=== PATIENT | female | born 1965 | race Caucasian/White ===

== ENCOUNTER 2016-10-23 09:25 | Emergency (ER) | payer OTHER ==
[2016-10-23 09:30] VITALS: RESP 18
[2016-10-23] MEDS ORDERED: KETOROLAC 30 MG/ML 1 ML VIAL IVP STA (10:00)
[2016-10-23] MEDS ORDERED: ONDANSETRON 4 MG/2 ML VIAL IVP STA (10:00)
[2016-10-23] MEDS ORDERED: SODIUM CHLORIDE 0.9% 1,000 ML IV STA (10:00)
--- NOTE | 2016-10-23 10:04 | ED ---
Female Urogenital HPI - General Chief complaint: Vaginal Bleeding Stated complaint: FEMALE Time Seen by Provider: 10/23/16 09:38 Source: patient, RN notes reviewed Mode of arrival: ambulatory Limitations: no limitations - History of Present Illness Initial comments: 51-year-old female presents to the emergency department with a chief complaint of vaginal bleeding. Patient states that she has had vaginal bleeding for the past 2-3 days. Patient states she is passing large clots and having cramping. Patient states that she just finished her normal menstrual cycle on the . Patient states her MANAGER OF COMPLIANCE is Dr. Fernandes but she has not seen her last few years. Patient states she has had a D&C performed due to a similar complaint. Patient states that she was concerned due to her continued bleeding so she thought that she should be evaluated. Patient denies any lightheadedness or dizziness with this.Patient denies any recent fever, chills, shortness of breath, chest pain, back pain, nausea vomiting, numbness or tingling, dysuria or hematuria, constipation or diarrhea, headaches or visual changes, or any other current symptoms. Last Menstrual Period: 10/04/16 - Related Data Home Medications Medication Instructions Recorded Confirmed Aspirin 325 - 650 mg PO Q6H PRN 10/23/16 10/23/16 Allergies Allergy/AdvReac Type Severity Reaction Status Date / Time dextromethorphan HBr Allergy Unknown Verified 10/23/16 10:07 [From Comtrex Cold-Cough] Childhood phenylephrine HCl Allergy Unknown Verified 10/23/16 10:07 [From Comtrex Cold-Cough] Childhood Review of Systems ROS Statement: Those systems with pertinent positive or pertinent negative responses have been documented in the HPI. ROS Other: All systems not noted in ROS Statement are negative. Past Medical History Past Medical History: No Reported History Additional Past Medical History / Comment(s): occasional low blood sugar History of Any Multi-Drug Resistant Organisms: None Reported Past Surgical History: Cholecystectomy, Tonsillectomy Additional Past Surgical History / Comment(s): D&C Past Anesthesia/Blood Transfusion Reactions: No Reported Reaction Past Psychological History: No Psychological Hx Reported Smoking Status: Never smoker Past Alcohol Use History: None Reported Past Drug Use History: None Reported General Exam - General Exam Comments Initial Comments: General: The patient is awake and alert, in no distress, and does not appear acutely ill. Eye: Pupils are equal, round and reactive to light, extra-ocular movements are intact; there is normal conjunctiva bilaterally. No signs of icterus. Ears, nose, mouth and throat: There are moist mucous membranes. Neck: The neck is supple, there is no tenderness. Cardiovascular: There is a regular rate and rhythm. No murmur, rub or gallop is appreciated. Respiratory: Lungs are clear to auscultation, respirations are non-labored, breath sounds are equal. No wheezes, stridor, rales, or rhonchi. Gastrointestinal: Soft, non-distended, non-tender abdomen without masses or organomegaly noted. There is no rebound or guarding present. No CVA tenderness. Bowel sounds are unremarkable. Back: There is no tenderness to palpation in the midline. There is no obvious deformity. No rashes noted. Musculoskeletal: Normal ROM, no tenderness, There is no pedal edema. There is no calf tenderness or swelling. Sensation intact. Pulses equal bilaterally 2+. Neurological: CN II-XII intact, There are no obvious motor or sensory deficits. Coordination appears grossly intact. Speech is normal. Skin: Skin is warm and dry and no rashes or lesions are noted. Psychiatric: Cooperative, appropriate mood & affect, normal judgment. Limitations: no limitations External exam: Present: normal external exam Speculum exam: Present: normal speculum exam, other (Unable to visualize cervix due to location of fibroid) By manual exam: Present: uterine enlargement (Fibroid palpated) Course Vital Signs 10/23/16 09:28 Temperature 97.5 F L Pulse Rate 92 Respiratory 18 Rate Blood Pressure 175/94 O2 Sat by Pulse 100 Oximetry Medical Decision Making - Medical Decision Making 51-year-old female presents emergency Department chief complaint of vaginal bleeding. At this time pelvic exam AND LABORATORY TESTS SHOW A UTERINE FIBROID. THIS TIME WE DISCUSSED FOLLOW-UP WITH MANAGER OF COMPLIANCE. WE DISCUSSED RETURN PARAMETERS ALL PATIENT'S QUESTIONS. SHE STATED THAT SHE UNDERSTOOD AND SHE IS AGREEMENT PLAN. ALL QUESTIONS HAVE BEEN ANSWERED. SHE WILL BE DISCHARGED HOME. - Lab Data Result diagrams: 10/23/16 09:59 10/23/16 09:59 Lab Results 10/23/16 10/23/16 10/23/16 Range/Units 09:59 09:59 09:59 WBC 5.3 (3.8-10.6) k/uL RBC 4.33 (3.80-5.40) m/uL Hgb 13.2 (11.4-16.0) gm/dL Hct 38.9 (34.0-46.0) % MCV 89.8 (80.0-100.0) fL MCH 30.6 (25.0-35.0) pg MCHC 34.1 (31.0-37.0) g/dL RDW 14.0 (11.5-15.5) % Plt Count 229 (150-450) k/uL Neutrophils % 75 % Lymphocytes % 17 % Monocytes % 5 % Eosinophils % 1 % Basophils % 1 % Neutrophils # 4.0 (1.3-7.7) k/uL Lymphocytes # 0.9 L (1.0-4.8) k/uL Monocytes # 0.3 (0-1.0) k/uL Eosinophils # 0.1 (0-0.7) k/uL Basophils # 0.0 (0-0.2) k/uL PT 11.3 (9.0-12.0) sec INR 1.1 (<1.1) APTT 24.8 (22.0-30.0) sec Sodium 141 (137-145) mmol/L Potassium 4.2 (3.5-5.1) mmol/L Chloride 107 (98-107) mmol/L Carbon Dioxide 22 (22-30) mmol/L Anion Gap 12 mmol/L BUN 11 (7-17) mg/dL Creatinine 0.69 (0.52-1.04) mg/dL Est GFR (MDRD) Af Amer >60 (>60 ml/min/1.73 sqM) Est GFR (MDRD) Non-Af >60 (>60 ml/min/1.73 sqM) Glucose 81 (74-99) mg/dL Calcium 8.8 (8.4-10.2) mg/dL Total Bilirubin 0.5 (0.2-1.3) mg/dL AST 22 (14-36) U/L ALT 26 (9-52) U/L Alkaline Phosphatase 63 (38-126) U/L Total Protein 6.8 (6.3-8.2) g/dL Albumin 4.1 (3.5-5.0) g/dL Urine Color Urine Appearance (Clear) Urine RBC (0-5) /hpf Urine WBC (0-5) /hpf Urine HCG, Qual (Not Detectd) 10/23/16 10/23/16 Range/Units 10:10 10:10 WBC (3.8-10.6) k/uL RBC (3.80-5.40) m/uL Hgb (11.4-16.0) gm/dL Hct (34.0-46.0) % MCV (80.0-100.0) fL MCH (25.0-35.0) pg MCHC (31.0-37.0) g/dL RDW (11.5-15.5) % Plt Count (150-450) k/uL Neutrophils % % Lymphocytes % % Monocytes % % Eosinophils % % Basophils % % Neutrophils # (1.3-7.7) k/uL Lymphocytes # (1.0-4.8) k/uL Monocytes # (0-1.0) k/uL Eosinophils # (0-0.7) k/uL Basophils # (0-0.2) k/uL PT (9.0-12.0) sec INR (<1.1) APTT (22.0-30.0) sec Sodium (137-145) mmol/L Potassium (3.5-5.1) mmol/L Chloride (98-107) mmol/L Carbon Dioxide (22-30) mmol/L Anion Gap mmol/L BUN (7-17) mg/dL Creatinine (0.52-1.04) mg/dL Est GFR (MDRD) Af Amer (>60 ml/min/1.73 sqM) Est GFR (MDRD) Non-Af (>60 ml/min/1.73 sqM) Glucose (74-99) mg/dL Calcium (8.4-10.2) mg/dL Total Bilirubin (0.2-1.3) mg/dL AST (14-36) U/L ALT (9-52) U/L Alkaline Phosphatase (38-126) U/L Total Protein (6.3-8.2) g/dL Albumin (3.5-5.0) g/dL Urine Color Red Urine Appearance Bloody H (Clear) Urine RBC >182 H (0-5) /hpf Urine WBC >182 H (0-5) /hpf Urine HCG, Qual Not Detected (Not Detectd) - Radiology Data Radiology results: report reviewed, image reviewed Disposition Clinical Impression: Uterine fibroid, Vaginal bleeding Disposition: HOME SELF-CARE Condition: Stable Instructions: Uterine Fibroids (ED) Additional Instructions: Please use medication as discussed. Please follow up with family doctor if symptoms have not improved over the next two days. Please return to the emergency room if your symptoms increase or worsen or for any other concerns. Referrals: Javan Lawrence MD [Primary Care Provider] - 1-2 days Chiqui Fernandes DO [Doctor of Osteopathic Medicine] - 1-2 days Time of Disposition: 11:49
[2016-10-23 10:12] LABS: Basophils % (A) 1 %; CH 30.1; CHCM 33.7; Eosinophils # (A) 0.1 k/uL (0-0.7); Eosinophils % (A) 1 %; HCT 38.9 % (34.0-46.0); HDW 2.71; HGB 13.2 gm/dL (11.4-16.0); Luc # (Auto) 0.09; Luc % (Auto) 2; Lymphocytes # (A) 0.9 k/uL (1.0-4.8); Lymphocytes % (A) 17 %; MCH 30.6 pg (25.0-35.0); MCHC 34.1 g/dL (31.0-37.0); MCV 89.8 fL (80.0-100.0); Mean Platelet Volume 8.3; Monocytes # (A) 0.3 k/uL (0-1.0); Monocytes % (A) 5 %; Neutrophils % (A) 75 %; RBC 4.33 m/uL (3.80-5.40); WBC 5.3 k/uL (3.8-10.6); WBC (Perox) 5.25
[2016-10-23 10:20] LABS: INR 1.1 (<1.1); Partial Thromboplastin Time 24.8 sec (22.0-30.0); Prothrombin Time 11.3 sec (9.0-12.0)
[2016-10-23 10:23] LABS: ALT 26 U/L (9-52); AST 22 U/L (14-36); Alkaline Phosphatase 63 U/L (38-126); Anion Gap 12 mmol/L; Blood Urea Nitrogen 11 mg/dL (7-17); Calcium 8.8 mg/dL (8.4-10.2); Carbon Dioxide 22 mmol/L (22-30); Chloride 107 mmol/L (98-107); Glucose 81 mg/dL (74-99); Non-African American GFR(MDRD) >60 (>60 ml/min/1.73 sqM); Potassium 4.2 mmol/L (3.5-5.1); Sodium 141 mmol/L (137-145); Total Bilirubin 0.5 mg/dL (0.2-1.3); Total Protein 6.8 g/dL (6.3-8.2)
[2016-10-23 10:48] LABS: Particle Count 16260; RBC,Urine >182 /hpf (0-5); WBC,Urine >182 /hpf (0-5)
[2016-10-23 10:50] LABS: Appearance,Urine Bloody (Clear)
[2016-10-23 10:51] LABS: UA Billing (MACRO vs. MICRO) MICRO
--- NOTE | 2016-10-23 11:26 | US ---
EXAMINATION TYPE: US transvaginal DATE OF EXAM: 10/23/2016 COMPARISON: NONE CLINICAL HISTORY: Pain. TECHNIQUE: Transvaginal (TV) and Transabdominal (TA) Date of LMP: 09-29-16 EXAM MEASUREMENTS: Uterus: 13.2 x 9.6 x 6.4 cm Endometrial Stripe: 1.3 cm Right Ovary: not visualized Left Ovary: 2.6 x 1.5 x 1.5 cm 1. Uterus: Anteverted, enlarged, large exophytic mass, probable fibroid measuring 9.7 x 8.4 x 10.8 cm 2. Endometrium: wnl 3. Right Ovary: Obscured by overlying bowel gas 4. Left Ovary: wnl 5. Bilateral Adnexa: wnl 6. Posterior cul-de-sac: wnl IMPRESSION: 1. Large posterior uterine fibroid
[2016-10-23 11:58] VITALS: BP 146/90; PULSE 72; TEMP 97.8
== END 2016-10-23 12:07 | disposition home or self-care (01) ==
LOC: EC 09:25
DX: D25.9 Leiomyoma of uterus, unspecified (principal); Z88.8 Allergy status to other drugs, medicaments and biological substances; Z90.49 Acquired absence of other specified parts of digestive tract
CPT/HCPCS: 99284; 96374; 96361 ×2; 36415; 80053; 87591; 87491; 85025; 85610; 85730; 81001; 81025; 87808; 87070; 76856; 76830; J1885; 87205

== ENCOUNTER 2016-11-03 10:07 | Emergency (ER) | payer OTHER ==
[2016-11-03 10:33] VITALS: TEMP 98.1
[2016-11-03] MEDS ORDERED: ACETAMINOPHEN TAB 325 MG TAB PO STA (11:03)
--- NOTE | 2016-11-03 11:03 | ED ---
Female Urogenital HPI - General Chief complaint: Vaginal Bleeding Stated complaint: blood clots/bleeding Time Seen by Provider: 11/03/16 10:49 Source: patient, RN notes reviewed Mode of arrival: ambulatory Limitations: no limitations - History of Present Illness Initial comments: Patient is a 51-year-old female with past medical history of uterine fibroids for which she was seen in the emergency department last month. Patient reports that over the past 3 months she has been having irregular vaginal bleeding, experiencing 2 menstrual cycles per month, with occasional intermittent spotting. On October 23 she was diagnosed with uterine fibroids and advised to follow-up with her primary care physician or family therapist for further evaluation. The patient has been unable to establish follow-up. She reports this morning she passed one large blood clot per vagina, at approximately 7am. She reports that since that time she has had minimal vaginal bleeding. However she read her discharge paperwork from her last ER visit which advised her to return to the emergency department for any passing of large blood clots. She reports that she came in today to make us aware that this that happened. She reports she feels well, she denies any lightheadedness, chest pain, shortness of breath, feeling faint. She reports that she is not concerned by the amount of vaginal bleeding she is experiencing. She denies any abdominal pain, she reports occasional low pelvic cramping but is not experiencing that today. Patient reports that if her discharge paperwork had not advised her to return to the ER for any passage of large blood clots she would not of come to the ER today. Last Menstrual Period: 10/01/16 - Related Data Home Medications Medication Instructions Recorded Confirmed Aspirin 325 mg PO Q6H PRN 10/23/16 11/03/16 Multivitamin Protein Drink 1 can PO DAILY 11/03/16 11/03/16 Allergies Allergy/AdvReac Type Severity Reaction Status Date / Time dextromethorphan HBr Allergy Unknown Verified 11/03/16 10:46 [From Comtrex Cold-Cough] Childhood phenylephrine HCl Allergy Unknown Verified 11/03/16 10:46 [From Comtrex Cold-Cough] Childhood Review of Systems ROS Statement: Those systems with pertinent positive or pertinent negative responses have been documented in the HPI. ROS Other: All systems not noted in ROS Statement are negative. Constitutional: Denies: fever, chills Respiratory: Denies: dyspnea Cardiovascular: Denies: chest pain, palpitations, dyspnea on exertion, syncope Endocrine: Denies: fatigue Gastrointestinal: Denies: abdominal pain, nausea, vomiting Genitourinary: Reports: abnormal menses. Denies: dysuria Musculoskeletal: Denies: back pain Skin: Denies: change in color Neurological: Denies: weakness Psychiatric: Denies: anxiety, depression Hematological/Lymphatic: Denies: easy bleeding, easy bruising Past Medical History Past Medical History: No Reported History Additional Past Medical History / Comment(s): occasional low blood sugar History of Any Multi-Drug Resistant Organisms: None Reported Past Surgical History: Cholecystectomy, Tonsillectomy Additional Past Surgical History / Comment(s): D&C Past Anesthesia/Blood Transfusion Reactions: No Reported Reaction Past Psychological History: No Psychological Hx Reported Smoking Status: Never smoker Past Alcohol Use History: None Reported Past Drug Use History: None Reported General Exam Limitations: no limitations General appearance: alert, in no apparent distress Head exam: Present: atraumatic, normocephalic, normal inspection Eye exam: Present: normal appearance, PERRL, EOMI, other (No conjunctival pallor ). Absent: scleral icterus, conjunctival injection, periorbital swelling ENT exam: Present: normal exam, mucous membranes moist Neck exam: Present: normal inspection. Absent: tenderness, meningismus, lymphadenopathy Respiratory exam: Present: normal lung sounds bilaterally. Absent: respiratory distress, wheezes, rales, rhonchi, stridor Cardiovascular Exam: Present: regular rate, normal rhythm, normal heart sounds. Absent: systolic murmur, diastolic murmur, rubs, gallop, clicks GI/Abdominal exam: Present: soft, normal bowel sounds. Absent: distended, tenderness, guarding, rebound, rigid Rectal exam: Present: deferred External exam: Present: other (Patient declined pelvic exam, stating that this was done last month and she doesn't think anything is changed. She is not concerned by the amount of bleeding.) Extremities exam: Present: normal inspection, full ROM, normal capillary refill. Absent: tenderness, pedal edema, joint swelling, calf tenderness Back exam: Present: full ROM Psychiatric exam: Present: normal affect Skin exam: Present: warm, dry, normal color. Absent: cyanosis, diaphoretic, pallor Course Vital Signs 11/03/16 10:31 Temperature 98.1 F Pulse Rate 86 Respiratory 20 Rate Blood Pressure 136/96 O2 Sat by Pulse 100 Oximetry Medical Decision Making - Medical Decision Making Patient was seen and examined, history was obtained from the patient and review of previous medical records History. He states that she was just here to make us aware that she has passed a large blood clot, as advised by her discharge paperwork. Patient is hemodynamically stable in no acute distress, not concerned by the amount of bleeding. Patient declined a pelvic exam or lab work. Patient was given by mouth Tylenol for cramping and advised to follow-up with her family therapist. Patient again advised to return to the ER if she develops any concerning amount of bleeding, abdominal cramping, lightheadedness, chest pain, shortness of breath syncope or any signs or symptoms she finds concerning. Patient expressed understanding and agreement with this plan for discharge home. Again reiterated the importance that the patient follow up with a family therapist as it appears she is in her perimenopausal stage and having abnormal vaginal bleeding which requires further workup. Patient's breast understanding of this. Disposition Clinical Impression: Dysfunctional uterine bleeding Disposition: HOME SELF-CARE Instructions: Uterine Fibroids (ED), Menopause (ED) Referrals: Javan Lawrence MD [Primary Care Provider] - 1-2 days
[2016-11-03 11:29] VITALS: BP 146/84; PULSE 75; RESP 16
== END 2016-11-03 11:29 | disposition home or self-care (01) ==
LOC: EC 10:07
DX: N93.8 Other specified abnormal uterine and vaginal bleeding (principal); R10.2 Pelvic and perineal pain; Z79.899 Other long term (current) drug therapy; Z88.8 Allergy status to other drugs, medicaments and biological substances
CPT/HCPCS: 99283

== ENCOUNTER 2017-01-16 15:32 | Emergency (ER) | payer OTHER ==
[2017-01-16] MEDS ORDERED: SODIUM CHLORIDE 0.9% 1,000 ML IV STA (16:01)
--- NOTE | 2017-01-16 16:02 | ED ---
General Adult HPI - General Chief complaint: Abdominal Pain Stated complaint: Abd Pain Time Seen by Provider: 01/16/17 15:52 Source: patient, RN notes reviewed Mode of arrival: ambulatory Limitations: no limitations - History of Present Illness Initial comments: Patient 51-year-old female who presents emergency room today with a chief complaint of vaginal bleeding on and off over the last several months. She states that symptoms started again 4 days ago. She states she's not family doctor and they have talked about possible hysterectomy. She states that she's had increased amount of bleeding. She states she had some abdominal pain to the abdomen today which is new. She describes a sharp type pain. She states for this morning was 10/10. She currently rates pain 1/10 at this time. She states is worse on the left side of the abdomen. She admits to a history of constipation and she denies any other complaints or associated symptoms. Patient denies any recent fever, chills, shortness of breath, chest pain, back pain, nausea or vomiting, numbness or tingling, dysuria or hematuria, diarrhea, headaches or visual changes, or any other complaints. - Related Data Home Medications Medication Instructions Recorded Confirmed Multivitamin Protein Drink 1 can PO DAILY 11/03/16 01/16/17 Vitamin E (Dl,Tocopheryl Acet) 400 unit PO DAILY 01/16/17 01/16/17 [Vitamin E] Allergies Allergy/AdvReac Type Severity Reaction Status Date / Time dextromethorphan HBr Allergy Unknown Verified 01/16/17 16:27 [From Comtrex Cold-Cough] Childhood phenylephrine HCl Allergy Unknown Verified 01/16/17 16:27 [From Comtrex Cold-Cough] Childhood Review of Systems ROS Statement: Those systems with pertinent positive or pertinent negative responses have been documented in the HPI. ROS Other: All systems not noted in ROS Statement are negative. Past Medical History Past Medical History: No Reported History Additional Past Medical History / Comment(s): occasional low blood sugar History of Any Multi-Drug Resistant Organisms: None Reported Past Surgical History: Cholecystectomy, Tonsillectomy Additional Past Surgical History / Comment(s): D&C Past Anesthesia/Blood Transfusion Reactions: No Reported Reaction Past Psychological History: No Psychological Hx Reported Smoking Status: Never smoker Past Alcohol Use History: None Reported Past Drug Use History: None Reported General Exam - General Exam Comments Initial Comments: General: The patient is awake and alert, in no distress, and does not appear acutely ill. Eye: Pupils are equal, round and reactive to light, extra-ocular movements are intact. No nystagmus. There is normal conjunctiva bilaterally. No signs of icterus. Ears, nose, mouth and throat: There are moist mucous membranes and no oral lesions. Neck: The neck is supple, there is no tenderness or JVD. Cardiovascular: There is a regular rate and rhythm. No murmur, rub or gallop is appreciated. Respiratory: Lungs are clear to auscultation, respirations are non-labored, breath sounds are equal. No wheezes, stridor, rales, or rhonchi. Gastrointestinal: Normal appearance them. Normal bowel sounds. Abdomen soft on palpation. Patient does have mild tenderness to the left side of the abdomen. No rebound tenderness. No guarding. No CVA tenderness. Musculoskeletal: Normal ROM, no tenderness. Strength 5/5. Sensation intact. Pulses equal bilaterally 2+. Neurological: A&O x 3. CN II-XII intact, There are no obvious motor or sensory deficits. Coordination appears grossly intact. Speech is normal. Skin: Skin is warm and dry and no rashes or lesions are noted. Psychiatric: Cooperative, appropriate mood & affect, normal judgment. Limitations: no limitations Course Vital Signs 01/16/17 01/16/17 01/16/17 15:37 16:24 17:30 Temperature 97.7 F Pulse Rate 87 86 78 Respiratory 17 18 18 Rate Blood Pressure 176/93 144/91 137/86 O2 Sat by Pulse 100 98 99 Oximetry Medical Decision Making - Medical Decision Making Case discussed in detail with attending physician Dr. Mina. Patient reexamined at this time shows no signs of distress resting comfortably. Patient labs reviewed unremarkable. Hemoglobin stable. Patient's ultrasound does show evidence for uterine fibroid. Patient vitals are stable. Advised to follow-up with BATCH [facility]ER or family doctor over the next 2-5 days. Advised return here to emergency room if any symptoms increase or worsen. - Lab Data Result diagrams: 01/16/17 16:19 01/16/17 16:19 Lab Results 01/16/17 01/16/17 01/16/17 Range/Units 16:19 16:19 16:19 WBC 5.0 (3.8-10.6) k/uL RBC 4.31 (3.80-5.40) m/uL Hgb 12.5 (11.4-16.0) gm/dL Hct 39.3 (34.0-46.0) % MCV 91.0 (80.0-100.0) fL MCH 29.0 (25.0-35.0) pg MCHC 31.9 (31.0-37.0) g/dL RDW 13.9 (11.5-15.5) % Plt Count 318 (150-450) k/uL Neutrophils % 61 % Lymphocytes % 26 % Monocytes % 7 % Eosinophils % 2 % Basophils % 1 % Neutrophils # 3.0 (1.3-7.7) k/uL Lymphocytes # 1.3 (1.0-4.8) k/uL Monocytes # 0.4 (0-1.0) k/uL Eosinophils # 0.1 (0-0.7) k/uL Basophils # 0.1 (0-0.2) k/uL Hypochromasia Moderate PT 11.6 (9.0-12.0) sec INR 1.2 H (<1.2) APTT 25.4 (22.0-30.0) sec Sodium 142 (137-145) mmol/L Potassium 4.0 (3.5-5.1) mmol/L Chloride 108 H (98-107) mmol/L Carbon Dioxide 24 (22-30) mmol/L Anion Gap 10 mmol/L BUN 8 (7-17) mg/dL Creatinine 0.68 (0.52-1.04) mg/dL Est GFR (MDRD) Af Amer >60 (>60 ml/min/1.73 sqM) Est GFR (MDRD) Non-Af >60 (>60 ml/min/1.73 sqM) Glucose 67 L (74-99) mg/dL Calcium 8.9 (8.4-10.2) mg/dL Total Bilirubin 0.3 (0.2-1.3) mg/dL AST 25 (14-36) U/L ALT 26 (9-52) U/L Alkaline Phosphatase 64 (38-126) U/L Total Protein 7.2 (6.3-8.2) g/dL Albumin 4.3 (3.5-5.0) g/dL Amylase 85 (30-110) U/L Lipase 164 (23-300) U/L Urine Color Urine Appearance (Clear) Urine pH (5.0-8.0) Ur Specific [place] (1.001-1.035) Urine Protein (Negative) Urine Glucose (UA) (Negative) Urine Ketones (Negative) Urine Blood (Negative) Urine Nitrite (Negative) Urine Bilirubin (Negative) Urine Urobilinogen (<2.0) mg/dL Ur Leukocyte Esterase (Negative) Urine RBC (0-5) /hpf Urine WBC (0-5) /hpf Ur Squamous Epith Cells (0-4) /hpf Urine Bacteria (None) /hpf Urine HCG, Qual (Not Detectd) 01/16/17 01/16/17 Range/Units 17:40 17:40 WBC (3.8-10.6) k/uL RBC (3.80-5.40) m/uL Hgb (11.4-16.0) gm/dL Hct (34.0-46.0) % MCV (80.0-100.0) fL MCH (25.0-35.0) pg MCHC (31.0-37.0) g/dL RDW (11.5-15.5) % Plt Count (150-450) k/uL Neutrophils % % Lymphocytes % % Monocytes % % Eosinophils % % Basophils % % Neutrophils # (1.3-7.7) k/uL Lymphocytes # (1.0-4.8) k/uL Monocytes # (0-1.0) k/uL Eosinophils # (0-0.7) k/uL Basophils # (0-0.2) k/uL Hypochromasia PT (9.0-12.0) sec INR (<1.2) APTT (22.0-30.0) sec Sodium (137-145) mmol/L Potassium (3.5-5.1) mmol/L Chloride (98-107) mmol/L Carbon Dioxide (22-30) mmol/L Anion Gap mmol/L BUN (7-17) mg/dL Creatinine (0.52-1.04) mg/dL Est GFR (MDRD) Af Amer (>60 ml/min/1.73 sqM) Est GFR (MDRD) Non-Af (>60 ml/min/1.73 sqM) Glucose (74-99) mg/dL Calcium (8.4-10.2) mg/dL Total Bilirubin (0.2-1.3) mg/dL AST (14-36) U/L ALT (9-52) U/L Alkaline Phosphatase (38-126) U/L Total Protein (6.3-8.2) g/dL Albumin (3.5-5.0) g/dL Amylase (30-110) U/L Lipase (23-300) U/L Urine Color Light Yellow Urine Appearance Clear (Clear) Urine pH 6.5 (5.0-8.0) Ur Specific [place] 1.008 (1.001-1.035) Urine Protein Negative (Negative) Urine Glucose (UA) Negative (Negative) Urine Ketones 1+ H (Negative) Urine Blood Moderate H (Negative) Urine Nitrite Negative (Negative) Urine Bilirubin Negative (Negative) Urine Urobilinogen <2.0 (<2.0) mg/dL Ur Leukocyte Esterase Negative (Negative) Urine RBC >182 H (0-5) /hpf Urine WBC 5 (0-5) /hpf Ur Squamous Epith Cells 1 (0-4) /hpf Urine Bacteria Occasional H (None) /hpf Urine HCG, Qual Not Detected (Not Detectd) Disposition Clinical Impression: Uterine fibroid Disposition: HOME SELF-CARE Condition: Good Instructions: Uterine Fibroids (ED) Additional Instructions: Please follow-up the family doctor and [facility] over the next 2 days as discussed. Please return here to the emergency room for any symptoms increase or worsen or for any other concerns. Referrals: Javan Lawrence MD [Primary Care Provider] - 1-2 days Time of Disposition: 18:15
[2017-01-16 16:24] VITALS: RESP 18
[2017-01-16 16:35] LABS: Basophils # (A) 0.1 k/uL (0-0.2); Basophils % (A) 1 %; CH 28.4; CHCM 31.4; Eosinophils # (A) 0.1 k/uL (0-0.7); Eosinophils % (A) 2 %; HCT 39.3 % (34.0-46.0); HDW 3.02; HGB 12.5 gm/dL (11.4-16.0); Hypochromasia Moderate; Luc # (Auto) 0.14; Luc % (Auto) 3; Lymphocytes # (A) 1.3 k/uL (1.0-4.8); Lymphocytes % (A) 26 %; MCHC 31.9 g/dL (31.0-37.0); Mean Platelet Volume 7.6; Monocytes # (A) 0.4 k/uL (0-1.0); Monocytes % (A) 7 %; Neutrophils % (A) 61 %; RBC 4.31 m/uL (3.80-5.40); RDW 13.9 % (11.5-15.5); WBC (Perox) 4.86
[2017-01-16 16:43] LABS: ALT 26 U/L (9-52); AST 25 U/L (14-36); Alkaline Phosphatase 64 U/L (38-126); Amylase 85 U/L (30-110); Anion Gap 10 mmol/L; Blood Urea Nitrogen 8 mg/dL (7-17); Calcium 8.9 mg/dL (8.4-10.2); Carbon Dioxide 24 mmol/L (22-30); Chloride 108 mmol/L (98-107); Glucose 67 mg/dL (74-99); Non-African American GFR(MDRD) >60 (>60 ml/min/1.73 sqM); Sodium 142 mmol/L (137-145); Total Bilirubin 0.3 mg/dL (0.2-1.3); Total Protein 7.2 g/dL (6.3-8.2)
[2017-01-16 16:46] LABS: INR 1.2 (<1.2); Partial Thromboplastin Time 25.4 sec (22.0-30.0); Prothrombin Time 11.6 sec (9.0-12.0)
--- NOTE | 2017-01-16 17:50 | US ---
EXAMINATION TYPE: US pelvic complete DATE OF EXAM: 01/16/2017 COMPARISON: US CLINICAL HISTORY: Vaginal bleeding. TECHNIQUE: Transabdominal (TA) Date of LMP: 01/09/17 EXAM MEASUREMENTS: Uterus: 11.5 x 10.6 x 9.5 cm Endometrial Stripe: 0.4 cm Right Ovary: 1.9 x 1.7 x 1.6 cm Left Ovary: 2.0 x 1.2 x 1.5 cm 1. Uterus: Anteverted, large fibroid measuring 10.7 x 9.4 x 9.8cm, bulky uterus 2. Endometrium: wnl 3. Right Ovary: wnl 4. Left Ovary: wnl Spectral, color and waveform doppler imaging shows good arterial and venous flow within the ovaries ; there is no evidence for ovarian torsion. 5. Bilateral Adnexa: wnl 6. Posterior cul-de-sac: small amount of ff IMPRESSION: 1 NORMAL ENDOMETRIAL STRIPE THICKNESS. 2 LARGE FUNDAL MYOMA MEASURING 10.7 x 9.8 x 9.4 CM.
[2017-01-16 18:11] LABS: Appearance,Urine Clear (Clear); Bacteria,Urine Occasional /hpf; Bilirubin,Urine Negative (Negative); Glucose,Urine (UA) Negative (Negative); Ketones,Urine 1+ (Negative); Leukocyte Esterase,Urine Negative (Negative); Nitrite,Urine Negative (Negative); PH, Urine 6.5 (5.0-8.0); Particle Count 951; Protein,Urine Negative (Negative); RBC,Urine >182 /hpf (0-5); Specific Gravity,Urine 1.008 (1.001-1.035); Squamous Epithelial Cell,Urine 1 /hpf (0-4); UA Billing (MACRO vs. MICRO) MICRO; Urobilinogen,Urine <2.0 mg/dL (<2.0); WBC,Urine 5 /hpf (0-5)
[2017-01-16 18:27] VITALS: BP 145/93; PULSE 79; TEMP 97.9
== END 2017-01-16 18:27 | disposition home or self-care (01) ==
LOC: EC 15:32
DX: D25.9 Leiomyoma of uterus, unspecified (principal); Z79.899 Other long term (current) drug therapy; Z88.8 Allergy status to other drugs, medicaments and biological substances; Z90.49 Acquired absence of other specified parts of digestive tract
CPT/HCPCS: 36415; 76856; 80053; 81001; 81025; 82150; 83690; 85025; 85610; 85730; 93975; 96360; 96361; 99284

== ENCOUNTER 2017-05-10 21:09 | Emergency (ER) | payer OTHER ==
[2017-05-10 21:19] VITALS: RESP 18
[2017-05-10] MEDS ORDERED: DICYCLOMINE 20 MG TAB PO STA (22:01)
[2017-05-10 22:09] LABS: Anisocytosis Slight; Appearance,Urine Clear (Clear); Basophils # (A) 0.1 k/uL (0-0.2); Basophils % (A) 1 %; Bilirubin,Urine Negative (Negative); Blood,Urine Negative (Negative); Color,Urine Yellow; Eosinophils # (A) 0.1 k/uL (0-0.7); Eosinophils % (A) 1 %; Glucose,Urine (UA) Negative (Negative); HCT 38.8 % (34.0-46.0); HGB 12.3 gm/dL (11.4-16.0); Hypochromasia Slight; Ketones,Urine Negative (Negative); Leukocyte Esterase,Urine Negative (Negative); Lymphocytes % (A) 22 %; MCH 27.8 pg (25.0-35.0); MCHC 31.6 g/dL (31.0-37.0); MCV 87.8 fL (80.0-100.0); Mean Platelet Volume 8.9; Monocytes # (A) 0.3 k/uL (0-1.0); Monocytes % (A) 7 %; Neutrophils # (A) 3.1 k/uL (1.3-7.7); Neutrophils % (A) 66 %; Nitrite,Urine Negative (Negative); PH, Urine 6.5 (5.0-8.0); Platelet Count 237 k/uL (150-450); Protein,Urine Negative (Negative); RBC 4.42 m/uL (3.80-5.40); RDW 16.1 % (11.5-15.5); Specific Gravity,Urine 1.014 (1.001-1.035); Urobilinogen,Urine <2.0 mg/dL (<2.0); WBC 4.6 k/uL (3.8-10.6)
--- NOTE | 2017-05-10 22:13 | ED ---
Abdominal Pain HPI - General Chief Complaint: Abdominal Pain Stated Complaint: lower abdominal pain Time Seen by Provider: 05/10/17 21:22 Source: patient Mode of arrival: ambulatory Limitations: no limitations - History of Present Illness Initial Comments: Patient's 51-year-old woman who presents to be evaluated for epigastric and periumbilical cramping. She states that the symptoms have been going on intermittently for greater than 2 months, and that she has been seen by her physician and is being referred to see if she needs a hysterectomy. The patient states that perhaps the symptoms are worse in the week or so before she has her menstrual cycle, which she is expecting in the next 5-7 days. The patient describes intermittent, moderate severity cramping. She has not noted worsening or relieving factors. When questioned about related symptoms she does state that she has been having some loose bowel movements over the past day. She has not seen any blood or tarry stools. No recent antibiotic use. MD Complaint: abdominal pain Onset/Timin -: month(s) Location: periumbilical, epigastric Radiation: none Migration to: no migration Severity: moderate Quality: cramping, fullness Consistency: intermittent Improves With: nothing Worsens With: nothing Associated Symptoms: diarrhea - Related Data LMP (females 10-50): 3 weeks Home Medications Medication Instructions Recorded Confirmed Multivitamin Protein Drink 1 can PO DAILY 11/03/16 05/10/17 Vitamin E (Dl,Tocopheryl Acet) 400 unit PO DAILY 01/16/17 05/10/17 [Vitamin E] Ibuprofen [Motrin] 600 mg PO Q8HR PRN 05/10/17 05/10/17 Previous Rx's Medication Instructions Recorded Dicyclomine [Bentyl] 20 mg PO QID #15 tablet 05/11/17 Allergies Allergy/AdvReac Type Severity Reaction Status Date / Time dextromethorphan HBr Allergy Unknown Verified 05/10/17 21:36 [From Comtrex Cold-Cough] Childhood phenylephrine HCl Allergy Unknown Verified 05/10/17 21:36 [From Comtrex Cold-Cough] Childhood Review of Systems ROS Statement: Those systems with pertinent positive or pertinent negative responses have been documented in the HPI. ROS Other: All systems not noted in ROS Statement are negative. Constitutional: Denies: fever, chills Respiratory: Denies: cough, dyspnea Cardiovascular: Denies: chest pain, palpitations Gastrointestinal: Reports: abdominal pain, diarrhea. Denies: nausea, vomiting, constipation, melena, hematochezia Genitourinary: Denies: dysuria, hematuria, abnormal menses Musculoskeletal: Denies: back pain Skin: Denies: rash Neurological: Denies: headache, weakness Past Medical History Past Medical History: No Reported History Additional Past Medical History / Comment(s): occasional low blood sugar History of Any Multi-Drug Resistant Organisms: None Reported Past Surgical History: Cholecystectomy, Tonsillectomy Additional Past Surgical History / Comment(s): D&C Past Anesthesia/Blood Transfusion Reactions: No Reported Reaction Past Psychological History: No Psychological Hx Reported Smoking Status: Never smoker Past Alcohol Use History: None Reported Past Drug Use History: None Reported General Exam Limitations: no limitations General appearance: alert, in no apparent distress Head exam: Present: atraumatic Eye exam: Present: normal appearance. Absent: scleral icterus, conjunctival injection ENT exam: Present: normal oropharynx Neck exam: Present: normal inspection Respiratory exam: Present: normal lung sounds bilaterally. Absent: respiratory distress, wheezes, rales, rhonchi, stridor Cardiovascular Exam: Present: regular rate, normal rhythm, normal heart sounds. Absent: systolic murmur, diastolic murmur, rubs, gallop GI/Abdominal exam: Present: soft, normal bowel sounds. Absent: distended, tenderness, guarding, rebound, rigid, mass, pulsatile mass, hernia Extremities exam: Present: normal inspection, normal capillary refill. Absent: pedal edema, calf tenderness Back exam: Present: normal inspection. Absent: CVA tenderness (R), CVA tenderness (L) Neurological exam: Present: alert Skin exam: Present: warm, dry, intact, normal color. Absent: rash Course Vital Signs 05/10/17 05/11/17 21:16 00:33 Temperature 98.3 F 97.2 F L Pulse Rate 99 71 Respiratory 18 18 Rate Blood Pressure 155/74 136/85 O2 Sat by Pulse 99 100 Oximetry Medical Decision Making - Medical Decision Making Patient's 51-year-old woman with abdominal pain and diarrhea. Exam is benign. Discussed appropriate further care and follow-up - Lab Data Result diagrams: 05/10/17 22:04 05/10/17 22:04 Lab Results 05/10/17 05/10/17 05/10/17 Range/Units 22:04 22:04 22:04 WBC 4.6 (3.8-10.6) k/uL RBC 4.42 (3.80-5.40) m/uL Hgb 12.3 (11.4-16.0) gm/dL Hct 38.8 (34.0-46.0) % MCV 87.8 (80.0-100.0) fL MCH 27.8 (25.0-35.0) pg MCHC 31.6 (31.0-37.0) g/dL RDW 16.1 H (11.5-15.5) % Plt Count 237 (150-450) k/uL Neutrophils % 66 % Lymphocytes % 22 % Monocytes % 7 % Eosinophils % 1 % Basophils % 1 % Neutrophils # 3.1 (1.3-7.7) k/uL Lymphocytes # 1.0 (1.0-4.8) k/uL Monocytes # 0.3 (0-1.0) k/uL Eosinophils # 0.1 (0-0.7) k/uL Basophils # 0.1 (0-0.2) k/uL Hypochromasia Slight Anisocytosis Slight Sodium 141 (137-145) mmol/L Potassium 4.4 (3.5-5.1) mmol/L Chloride 105 (98-107) mmol/L Carbon Dioxide 27 (22-30) mmol/L Anion Gap 9 mmol/L BUN 13 (7-17) mg/dL Creatinine 0.70 (0.52-1.04) mg/dL Est GFR (MDRD) Af Amer >60 (>60 ml/min/1.73 sqM) Est GFR (MDRD) Non-Af >60 (>60 ml/min/1.73 sqM) Glucose 92 (74-99) mg/dL Calcium 9.2 (8.4-10.2) mg/dL Total Bilirubin 0.1 L (0.2-1.3) mg/dL AST 26 (14-36) U/L ALT 23 (9-52) U/L Alkaline Phosphatase 79 (38-126) U/L Total Protein 7.0 (6.3-8.2) g/dL Albumin 4.2 (3.5-5.0) g/dL Amylase 93 (30-110) U/L Lipase 238 (23-300) U/L Urine Color Yellow Urine Appearance Clear (Clear) Urine pH 6.5 (5.0-8.0) Ur Specific [place] 1.014 (1.001-1.035) Urine Protein Negative (Negative) Urine Glucose (UA) Negative (Negative) Urine Ketones Negative (Negative) Urine Blood Negative (Negative) Urine Nitrite Negative (Negative) Urine Bilirubin Negative (Negative) Urine Urobilinogen <2.0 (<2.0) mg/dL Ur Leukocyte Esterase Negative (Negative) Disposition Clinical Impression: Diarrhea, Abdominal pain Disposition: HOME SELF-CARE Condition: Good Instructions: Abdominal Pain (ED) Prescriptions: Dicyclomine [Bentyl] 20 mg PO QID #15 tablet Referrals: Javan Lawrence MD [Primary Care Provider] - 1-2 days
[2017-05-10 22:29] LABS: ALT 23 U/L (9-52); AST 26 U/L (14-36); Albumin 4.2 g/dL (3.5-5.0); Alkaline Phosphatase 79 U/L (38-126); Amylase 93 U/L (30-110); Anion Gap 9 mmol/L; Blood Urea Nitrogen 13 mg/dL (7-17); Calcium 9.2 mg/dL (8.4-10.2); Carbon Dioxide 27 mmol/L (22-30); Chloride 105 mmol/L (98-107); Glucose 92 mg/dL (74-99); Lipase 238 U/L (23-300); Potassium 4.4 mmol/L (3.5-5.1); Sodium 141 mmol/L (137-145); Total Bilirubin 0.1 mg/dL (0.2-1.3)
[2017-05-11 00:34] VITALS: BP 136/85; PULSE 71; TEMP 97.2
== END 2017-05-11 00:33 | disposition home or self-care (01) ==
LOC: EC 21:09
DX: R10.13 Epigastric pain (principal); R10.33 Periumbilical pain; R19.7 Diarrhea, unspecified; Z79.899 Other long term (current) drug therapy; Z88.8 Allergy status to other drugs, medicaments and biological substances; Z90.49 Acquired absence of other specified parts of digestive tract
CPT/HCPCS: 36415; 80053; 81003; 82150; 83690; 85025; 99284

== ENCOUNTER → 2017-07-06 | Outpatient (CLI) | payer OTHER ==
--- NOTE | 2017-07-07 11:19 | US ---
EXAMINATION TYPE: US transvaginal DATE OF EXAM: 07/06/2017 COMPARISON: 01/16/2017 CLINICAL HISTORY: D25.9 Leiomyoma Of Uterus, Unspecified. D&C 2 months ago. Pelvic pain, fibroid uter us TECHNIQUE: Transvaginal (TV) and Transabdominal (TA) . Transvaginal sonographic images of the pelvi s were acquired. Transabdominal sonographic images were medically necessary to better assess the fol lowing anatomy: uterus/endometrium due to large fibroid Date of LMP: end may EXAM MEASUREMENTS: Uterus: 14.1 x 10.3 x 12.2 cm Endometrial Stripe: 0.4 cm Right Ovary: unable to visualize Left Ovary: 3.3 x 1.9 x 1.6 cm 1. Uterus: Anteverted bulky with large fibroid = 10.7 x 9.7 x 11.5cm 2. Endometrium: appears wnl 3. Right Ovary: Obscured by overlying bowel gas 4. Left Ovary: appears wnl 5. Bilateral Adnexa: wnl 6. Posterior cul-de-sac: appears wnl IMPRESSION: 1. Large bulky uterus with a large 10 cm fibroid present.
== END | disposition home or self-care (01) ==
LOC: RADUSWWP 16:20
PROVIDERS: ATTEND Obstetrics & Gynecology
DX: D25.9 Leiomyoma of uterus, unspecified (principal)
CPT/HCPCS: 76830; 76856

== ENCOUNTER 2017-07-15 07:07 | Emergency (ER) | payer OTHER ==
[2017-07-15 07:21] VITALS: RESP 16
[2017-07-15] MEDS ORDERED: SODIUM CHLORIDE 0.9% 1,000 ML IV STA ×2 (07:27)
[2017-07-15] MEDS ORDERED: KETOROLAC 30 MG/ML 1 ML VIAL IVP STA (07:36)
[2017-07-15] MEDS ORDERED: MORPHINE SULFATE/PF 10MG/10ML VL IVP ONE (07:36)
--- NOTE | 2017-07-15 07:57 | ED ---
Abdominal Pain HPI - General Chief Complaint: Abdominal Pain Stated Complaint: abdominal pain Time Seen by Provider: 07/15/17 07:11 Source: patient, EMS, RN notes reviewed, old records reviewed Mode of arrival: EMS Limitations: no limitations - History of Present Illness Initial Comments: This patient is a 51-year-old female chief complaint of having lower abdominal pain intermittently for the past few months. She reports that it's become progressively worse over the past evening. She reports she has a lot of pressure in her pelvis. Patient reports she's had no falls. Patient states that she's had a D&C a few months ago and she had a ultrasound one week ago. She has not followed up with her [facility]. She is supposed to follow-up with her [facility] on next Thursday. Her MILK VENDOR is Dr. Abreu. Patient complains of frequent urination. She states that she has lost control of her bladder twice this morning. She did have a bowel movement this morning. - Related Data Home Medications Medication Instructions Recorded Confirmed Multivitamin Protein Drink 1 can PO DAILY 11/03/16 07/15/17 Ibuprofen [Motrin] 600 mg PO Q8HR PRN 05/10/17 07/15/17 Acetaminophen Tab [Tylenol Tab] 650 mg PO Q4H PRN 07/15/17 07/15/17 Previous Rx's Medication Instructions Recorded Dicyclomine [Bentyl] 20 mg PO QID #15 tablet 05/11/17 Nitrofurantoin Monohyd/M-Cryst 100 mg PO Q12HR #14 cap 07/15/17 [Macrobid] Phenazopyridine [Pyridium] 100 mg PO TID #9 tablet 07/15/17 Allergies Allergy/AdvReac Type Severity Reaction Status Date / Time dextromethorphan HBr Allergy Unknown Verified 07/15/17 07:50 [From Comtrex Cold-Cough] Childhood phenylephrine HCl Allergy Unknown Verified 07/15/17 07:50 [From Comtrex Cold-Cough] Childhood Review of Systems ROS Statement: Those systems with pertinent positive or pertinent negative responses have been documented in the HPI. ROS Other: All systems not noted in ROS Statement are negative. Past Medical History Past Medical History: No Reported History Additional Past Medical History / Comment(s): occasional low blood sugar History of Any Multi-Drug Resistant Organisms: None Reported Past Surgical History: Cholecystectomy, Tonsillectomy Additional Past Surgical History / Comment(s): D&C Past Anesthesia/Blood Transfusion Reactions: No Reported Reaction Past Psychological History: No Psychological Hx Reported Smoking Status: Never smoker Past Alcohol Use History: None Reported Past Drug Use History: None Reported General Exam - General Exam Comments Initial Comments: this is a 51-year-old female. No acute distress. Limitations: no limitations General appearance: alert, in no apparent distress Head exam: Present: atraumatic, normocephalic, normal inspection Eye exam: Present: normal appearance, PERRL, EOMI. Absent: scleral icterus, conjunctival injection, periorbital swelling ENT exam: Present: normal exam, mucous membranes moist Neck exam: Present: normal inspection. Absent: tenderness, meningismus, lymphadenopathy Respiratory exam: Present: normal lung sounds bilaterally. Absent: respiratory distress, wheezes, rales, rhonchi, stridor Cardiovascular Exam: Present: regular rate, normal rhythm, normal heart sounds. Absent: systolic murmur, diastolic murmur, rubs, gallop, clicks GI/Abdominal exam: Present: soft, tenderness (patient has a firm lower abdomen.) , normal bowel sounds. Absent: distended, guarding, rebound, rigid Back exam: Present: normal inspection Neurological exam: Present: alert, oriented X3, CN II-XII intact Psychiatric exam: Present: normal affect, normal mood Skin exam: Present: warm, dry, intact, normal color. Absent: rash Course Vital Signs 07/15/17 07/15/17 07/15/17 07:16 09:05 10:00 Temperature 98 F 98.3 F Pulse Rate 95 88 90 Respiratory 16 16 16 Rate Blood Pressure 174/108 175/101 160/100 O2 Sat by Pulse 99 99 99 Oximetry 07/15/17 10:01 Temperature 98.3 F Pulse Rate Respiratory Rate Blood Pressure O2 Sat by Pulse Oximetry Medical Decision Making - Medical Decision Making his patient is a 51-year-old female chief complaint of having lower abdominal pain intermittently for the past few months. She reports that it's become progressively worse over the past evening. She reports she has a lot of pressure in her pelvis. Patient reports she's had no falls. Patient states that she's had a D&C a few months ago and she had a ultrasound one week ago. She has not followed up with her [facility]. Patient was given IV fluids and labs obtained. SHe has evidence of UTI. I reviewed previous US and she has a large 10 cm uterine fibroid, likely creating pressure on her bladder. She has normal rectal tone, no falls and denies back pain or paresthesias. Paitent will be started on antibiotics. Discussed appropriate follow up with OBGYN. Return parameters discussed. - Lab Data Result diagrams: 07/15/17 07:40 07/15/17 07:40 Lab Results 07/15/17 07/15/17 07/15/17 Range/Units 07:40 07:40 07:40 WBC 8.5 (3.8-10.6) k/uL RBC 4.82 (3.80-5.40) m/uL Hgb 13.0 (11.4-16.0) gm/dL Hct 40.4 (34.0-46.0) % MCV 83.8 (80.0-100.0) fL MCH 27.0 (25.0-35.0) pg MCHC 32.2 (31.0-37.0) g/dL RDW 15.2 (11.5-15.5) % Plt Count 264 (150-450) k/uL Neutrophils % 89 % Lymphocytes % 6 % Monocytes % 3 % Eosinophils % 0 % Basophils % 0 % Neutrophils # 7.6 (1.3-7.7) k/uL Lymphocytes # 0.5 L (1.0-4.8) k/uL Monocytes # 0.3 (0-1.0) k/uL Eosinophils # 0.0 (0-0.7) k/uL Basophils # 0.0 (0-0.2) k/uL Sodium 135 L (137-145) mmol/L Potassium 3.9 (3.5-5.1) mmol/L Chloride 100 (98-107) mmol/L Carbon Dioxide 25 (22-30) mmol/L Anion Gap 10 mmol/L BUN 9 (7-17) mg/dL Creatinine 0.50 L (0.52-1.04) mg/dL Est GFR (CKD-EPI)AfAm >90 (>60 ml/min/1.73 sqM) Est GFR (CKD-EPI)NonAf >90 (>60 ml/min/1.73 sqM) Glucose 111 H (74-99) mg/dL Calcium 9.6 (8.4-10.2) mg/dL Total Bilirubin 0.3 (0.2-1.3) mg/dL AST 45 H (14-36) U/L ALT 37 (9-52) U/L Alkaline Phosphatase 76 (38-126) U/L Total Protein 7.3 (6.3-8.2) g/dL Albumin 4.5 (3.5-5.0) g/dL Amylase 85 (30-110) U/L Lipase 143 (23-300) U/L Urine Color Light Yellow Urine Appearance Cloudy H (Clear) Urine pH 7.0 (5.0-8.0) Ur Specific [place] 1.007 (1.001-1.035) Urine Protein Negative (Negative) Urine Glucose (UA) Negative (Negative) Urine Ketones Negative (Negative) Urine Blood Trace H (Negative) Urine Nitrite Negative (Negative) Urine Bilirubin Negative (Negative) Urine Urobilinogen <2.0 (<2.0) mg/dL Ur Leukocyte Esterase Large H (Negative) Urine RBC 11 H (0-5) /hpf Urine WBC 33 H (0-5) /hpf Ur Squamous Epith Cells 8 H (0-4) /hpf Amorphous Sediment Occasional H (None) /hpf Urine Bacteria Few H (None) /hpf Urine Mucus Rare H (None) /hpf - Radiology Data Radiology results: report reviewed US shows enlarged uterine fibroid. Fibroid measures 10 cm. KUB shows redemonstrated large uterine fibroid. Disposition Clinical Impression: UTI (urinary tract infection), Uterine fibroid Disposition: HOME SELF-CARE Condition: Good Instructions: Uterine Fibroids (ED) Additional Instructions: patient denies a follow-up promptly with primary care physician. Also follow- up with her [facility] for hysterectomy. Return to emergency department if any alarming signs or symptoms occur. Prescriptions: Nitrofurantoin Monohyd/M-Cryst [Macrobid] 100 mg PO Q12HR #14 cap Phenazopyridine [Pyridium] 100 mg PO TID #9 tablet Referrals: Javan Lawrence MD [Primary Care Provider] - 1-2 days Time of Disposition: 09:37
[2017-07-15 08:05] LABS: Basophils % (A) 0 %; Eosinophils % (A) 0 %; HCT 40.4 % (34.0-46.0); Lymphocytes # (A) 0.5 k/uL (1.0-4.8); Lymphocytes % (A) 6 %; MCHC 32.2 g/dL (31.0-37.0); MCV 83.8 fL (80.0-100.0); Mean Platelet Volume 7.7; Monocytes # (A) 0.3 k/uL (0-1.0); Monocytes % (A) 3 %; Neutrophils # (A) 7.6 k/uL (1.3-7.7); Neutrophils % (A) 89 %; Platelet Count 264 k/uL (150-450); RBC 4.82 m/uL (3.80-5.40); RDW 15.2 % (11.5-15.5); WBC 8.5 k/uL (3.8-10.6)
--- NOTE | 2017-07-15 08:09 | XR ---
EXAMINATION TYPE: XR KUB DATE OF EXAM: 07/15/2017 8:04 AM CLINICAL HISTORY: Lower abdominal pain and pressure TECHNIQUE: Single upright image of the abdomen is obtained. COMPARISON: None. FINDINGS: Scattered gas is seen in non-distended small bowel loops. Gas and fecal material is seen in non-distended colon. There is no visceromegaly, pneumoperitoneum, or abnormal calcification apprecia judith. The lung bases are clear and the osseous structures are intact. Cholecystectomy clips are noted within the right upper quadrant. Paucity of bowel gas within the low pelvis may relate to mass effect by the known 10.7 cm leiomyoma. IMPRESSION: Nonobstructive bowel gas pattern. Paucity of bowel gas within the low abdomen may relate to the known 10.7 cm uterine leiomyoma.
[2017-07-15 08:18] LABS: Amorphous Sediment,Urine Occasional /hpf; Appearance,Urine Cloudy (Clear); Bacteria,Urine Few /hpf; Bilirubin,Urine Negative (Negative); Blood,Urine Trace (Negative); Color,Urine Light Yellow; Glucose,Urine (UA) Negative (Negative); Ketones,Urine Negative (Negative); Leukocyte Esterase,Urine Large (Negative); Mucus,Urine Rare /hpf; Nitrite,Urine Negative (Negative); Protein,Urine Negative (Negative); RBC,Urine 11 /hpf (0-5); Specific Gravity,Urine 1.007 (1.001-1.035); Squamous Epithelial Cell,Urine 8 /hpf (0-4); Urobilinogen,Urine <2.0 mg/dL (<2.0); WBC,Urine 33 /hpf (0-5)
[2017-07-15 08:21] LABS: ALT 37 U/L (9-52); AST 45 U/L (14-36); Albumin 4.5 g/dL (3.5-5.0); Alkaline Phosphatase 76 U/L (38-126); Amylase 85 U/L (30-110); Anion Gap 10 mmol/L; Blood Urea Nitrogen 9 mg/dL (7-17); Calcium 9.6 mg/dL (8.4-10.2); Carbon Dioxide 25 mmol/L (22-30); Chloride 100 mmol/L (98-107); Glucose 111 mg/dL (74-99); Lipase 143 U/L (23-300); Potassium 3.9 mmol/L (3.5-5.1); Sodium 135 mmol/L (137-145); Total Bilirubin 0.3 mg/dL (0.2-1.3); Total Protein 7.3 g/dL (6.3-8.2)
[2017-07-15] MEDS ORDERED: cefTRIAXone IN SWFI 1,000 MG/10 ML SYRINGE IVP STA (08:33)
[2017-07-15] MEDS ORDERED: ACETAMINOPHEN TAB 500 MG TAB PO STA (09:51)
[2017-07-15 10:01] VITALS: BP 160/100; PULSE 90; TEMP 98.3
== END 2017-07-15 10:01 | disposition home or self-care (01) ==
LOC: EC 07:07
DX: N39.0 Urinary tract infection, site not specified (principal); D25.9 Leiomyoma of uterus, unspecified; R10.30 Lower abdominal pain, unspecified; Z79.899 Other long term (current) drug therapy; Z88.8 Allergy status to other drugs, medicaments and biological substances; Z90.49 Acquired absence of other specified parts of digestive tract; Z53.29 Procedure and treatment not carried out because of patient's decision for other reasons
CPT/HCPCS: 36415; 80053; 82150; 83690; 85025; 81001; 87086; 74018; 99285; 96374; 96361 ×2; J0696

== ENCOUNTER 2017-10-26 17:51 | Emergency (ER) | payer OTHER ==
[2017-10-26 17:54] VITALS: BP 166/97; PULSE 94; RESP 18; TEMP 98
--- NOTE | 2017-10-26 18:11 | ED ---
ENT HPI - General Chief complaint: ENT Stated complaint: EARS, SORE THROAT, RT LUNG PAIN Time Seen by Provider: 10/26/17 18:02 Source: patient, RN notes reviewed Mode of arrival: ambulatory Limitations: no limitations - History of Present Illness Initial comments: This a 52-year-old female presents emergency Department chief complaint of right ear pressure, sore throat and cough. Patient states that she's had URI symptoms for the last week. She states she has pain in her right lung. She states she's had this in the past with upper respiratory infection and they told her she may have asthma. Patient reports no shortness of breath no fever no chills. Denies any factors that improve pain in her right lung. Patient denies any palpitations no recent travel and no history DVT. Patient states she has pressure right ear feels like there is fluid. She's had some nasal congestion and postnasal drainage. She's not been taken any medication for her symptoms at this time. - Related Data Home Medications Medication Instructions Recorded Confirmed Multivitamins, Thera [Multivitamin 1 tab PO DAILY 10/26/17 10/26/17 (formulary)] Previous Rx's Medication Instructions Recorded Fluticasone Nasal [place] [Flonase 2 spr EA NOSTRIL DAILY #1 bottle 10/26/17 Nasal [place]] methylPREDNISolone [Medrol Dose 4 mg PO DIRECTED #1 pack 10/26/17 Pack] Allergies Allergy/AdvReac Type Severity Reaction Status Date / Time dextromethorphan HBr Allergy Unknown Verified 10/26/17 18:05 [From Comtrex Cold-Cough] Childhood phenylephrine HCl Allergy Unknown Verified 10/26/17 18:05 [From Comtrex Cold-Cough] Childhood Review of Systems ROS Statement: Those systems with pertinent positive or pertinent negative responses have been documented in the HPI. ROS Other: All systems not noted in ROS Statement are negative. Past Medical History Past Medical History: No Reported History Additional Past Medical History / Comment(s): occasional low blood sugar History of Any Multi-Drug Resistant Organisms: None Reported Past Surgical History: Cholecystectomy, Hysterectomy, Tonsillectomy Additional Past Surgical History / Comment(s): D&C Past Anesthesia/Blood Transfusion Reactions: No Reported Reaction Past Psychological History: No Psychological Hx Reported Smoking Status: Never smoker Past Alcohol Use History: None Reported Past Drug Use History: None Reported General Exam Limitations: no limitations General appearance: alert, in no apparent distress Head exam: Present: atraumatic, normocephalic, normal inspection ENT exam: Present: mucous membranes moist, normal external ear exam. Absent: normal oropharynx (Postnasal drainage), TM's normal bilaterally (Mild fluid noted of the right TM with no erythema) Neck exam: Present: normal inspection, full ROM. Absent: tenderness, meningismus, lymphadenopathy Respiratory exam: Present: normal lung sounds bilaterally. Absent: respiratory distress, wheezes, rales, rhonchi, stridor, chest wall tenderness Cardiovascular Exam: Present: regular rate, normal rhythm, normal heart sounds. Absent: systolic murmur, diastolic murmur, rubs, gallop, clicks Neurological exam: Present: alert, oriented X3, CN II-XII intact, reflexes normal. Absent: motor sensory deficit Skin exam: Present: warm, dry, intact, normal color. Absent: rash Course Vital Signs 10/26/17 17:51 Temperature 98.0 F Pulse Rate 94 Respiratory 18 Rate Blood Pressure 166/97 O2 Sat by Pulse 98 Oximetry Medical Decision Making - Medical Decision Making 52-year-old female presented emergency department for multiple URI symptoms. Patient we treated for a stationary dysfunction, postnasal drainage. Patient given steroids, Flonase. Patient will follow-up with PCP and return for any worsening symptoms. Disposition Clinical Impression: Eustachian tube dysfunction, URI, acute, Post-nasal drainage Disposition: HOME SELF-CARE Condition: Stable Instructions: Upper Respiratory Infection (ED) Additional Instructions: Please return to the Emergency Department if symptoms worsen or any other concerns. Prescriptions: Fluticasone Nasal [place] [Flonase Nasal [place]ison] 2 spr EA NOSTRIL DAILY #1 bottle methylPREDNISolone [Medrol Dose Pack] 4 mg PO DIRECTED #1 pack Is patient prescribed a controlled substance at d/c from ED?: No Referrals: Javan Lawrence MD [Primary Care Provider] - 1-2 days Time of Disposition: 18:48
--- NOTE | 2017-10-26 18:44 | XR ---
EXAMINATION TYPE: XR chest 2V DATE OF EXAM: 10/26/2017 COMPARISON: 11/18/2014 HISTORY: Cough TECHNIQUE: Frontal and lateral views of the chest are obtained. FINDINGS: Heart and mediastinum are normal. Lungs are clear. Diaphragm is normal. Bony thorax appear s normal. IMPRESSION: Normal chest. No change.
== END 2017-10-26 18:50 | disposition home or self-care (01) ==
LOC: EC 17:51
DX: J06.9 Acute upper respiratory infection, unspecified (principal); H69.90 Unspecified Eustachian tube disorder, unspecified ear; R09.82 Postnasal drip; Z88.8 Allergy status to other drugs, medicaments and biological substances
CPT/HCPCS: 71046; 99283

== ENCOUNTER → 2018-01-04 | Outpatient (CLI) | payer SELFPAY ==
--- NOTE | 2018-01-05 10:39 | MM ---
Reason for exam: screening (asymptomatic). Last mammogram was performed 1 year and 9 months ago. History: Family history of breast cancer in paternal grandmother. Physical Findings: A clinical breast exam by your physician is recommended on an annual basis and results should be correlated with mammographic findings. MG Screening Mammo w CAD Bilateral CC and MLO view(s) were taken. Prior study comparison: April 04, 2016, bilateral MG screening mammo w CAD. September 25, 2014, bilateral MG screening mammo w CAD. The breast tissue is extremely dense which could obscure a lesion on mammography. There are benign appearing round calcifications bilaterally. There is no discrete abnormality. ASSESSMENT: Benign, BI-RAD 2 RECOMMENDATION: Routine screening mammogram of both breasts in 1 year.
== END | disposition home or self-care (01) ==
LOC: RADMAMWWP 11:07
PROVIDERS: ATTEND Family Medicine
DX: Z12.31 Encounter for screening mammogram for malignant neoplasm of breast (principal)
CPT/HCPCS: 77067

== ENCOUNTER 2019-02-15 07:13 | Day surgery (SDC) | payer OTHER ==
[2019-02-14 09:25] VITALS: BMI 30.4
[~2019-02-15 07:13] MED LIST: LACTATED RINGERS 1,000 ML IV SCH; LIDOCAINE 1% 20 ML VIAL (10MG/ML) FOR IV START INTRADERMA PRN
[2019-02-15 07:38] VITALS: TEMP 97.8
[2019-02-15] MEDS ORDERED: PROPOFOL 10 MG/ML 20 ML VIAL IV ONE (08:20)
[2019-02-15] MEDS ORDERED: LIDOCAINE 1% INJ 10MG/ML (20 ML MDV) ONE (08:20)
--- NOTE | 2019-02-15 08:48 | P.OP ---
Date of Procedure: 02/15/19 Preoperative Diagnosis: Abdominal pain, screening Postoperative Diagnosis: Gastritis, diverticulosis Anesthesia: MAC Surgeon: Jos Breaux IV fluids (ml): 1 Condition: stable Disposition: same day Description of Procedure: Patient is brought operative suite placed in the left lateral decubitus position underwent anesthesia per Department of anesthesia timeout performed correct patient correct procedure correct site verified. Scope was passed through the oropharynx down the esophagus with ease through the stomach and the first and second portion of the duodenum mild inflammation was noted biopsy was taken scope was withdrawn into the stomach all morgan and body of the stomach were inspected the scope was retroflexed mild gastritis is noted biopsy of antrum was taken. No hiatal hernia was noted. Scope was withdrawn to the GE junction biopsies taken to rule out. Esophagitis scope was then slowly withdrawn being sure to visualize all of the esophagus on the way out no other abnormalities were noted. Patient was turned and colonoscope was obtained rectal exam was performed no gross abnormalities were noted the scope was passed from the rectum to the cecum with the slowly withdrawn make sure to visualize all morgan of the colon on the way out diverticulosis scattered in the sigmoid were noted. No other abnormalities were noted. Scope was retroflexed in the rectum no abnormalities are noted patient tolerated the procedure well no apparent complications
[2019-02-15 09:28] VITALS: BP 138/89; PULSE 82; RESP 18
--- NOTE | 2019-02-21 08:10 | CDI ---
Outpatient Documentation Clarification Form Date: 02/21/19 CDS/Advice Clerk Name: Faby Weldon Phone: If any questions, call [facility] at [phone] Patient Name: Agata Blake Admit Date: 02/15/19 Discharge Date : 02/15/19 ATTENTION: The [facility] Coding Staff appreciate your assistance in clarifying documentation. Please respond to the clarification below the line at the bottom and electronically sign. The [facility] Coding Staff with review the response and follow-up if needed. Please note: Queries are made a part of the Legal Health Record. If you have any questions, please contact the [facility]. Dear Dr. Breaux, Please provide clarification on the reason for the EGD and colonoscopy. Was the colonoscopy strictly a screening or was is performed as part of the work up for the abdominal pain. Please clarify. Thank you for your kind consideration, Screening MTDD
== END 2019-02-15 09:44 | disposition home or self-care (01) ==
LOC: ORWHC2ENDO 07:13
PROVIDERS: ATTEND Student in an Organized Health Care Education/Training Program
DX: Z12.11 Encounter for screening for malignant neoplasm of colon (principal); K29.50 Unspecified chronic gastritis without bleeding; K57.30 Diverticulosis of large intestine without perforation or abscess without bleeding; I10 Essential (primary) hypertension; J45.909 Unspecified asthma, uncomplicated; Z90.710 Acquired absence of both cervix and uterus; Z90.49 Acquired absence of other specified parts of digestive tract; Z83.3 Family history of diabetes mellitus; Z82.49 Family history of ischemic heart disease and other diseases of the circulatory system; Z80.9 Family history of malignant neoplasm, unspecified
CPT/HCPCS: 88305; 43239; J2001; J2704; G0121

== ENCOUNTER → 2019-04-19 | Outpatient (CLI) | payer OTHER ==
--- NOTE | 2019-04-22 11:02 | MM ---
Reason for exam: screening (asymptomatic). Last mammogram was performed 1 year and 3 months ago. History: Patient is postmenopausal. Family history of breast cancer in paternal grandmother. Took hormonal contraceptives for 6 years beginning at age 17. Physical Findings: A clinical breast exam by your physician is recommended on an annual basis and results should be correlated with mammographic findings. MG 3D Screening Mammo W/Cad Bilateral CC and MLO view(s) were taken. Prior study comparison: January 04, 2018, bilateral MG screening mammo w CAD. April 04, 2016, bilateral MG screening mammo w CAD. There are scattered fibroglandular densities. No significant changes when compared with prior studies. ASSESSMENT: Benign, BI-RAD 2 RECOMMENDATION: Routine screening mammogram of both breasts in 1 year.
== END | disposition home or self-care (01) ==
LOC: RADMAMWWP 07:52
PROVIDERS: ATTEND Family Medicine
DX: Z12.31 Encounter for screening mammogram for malignant neoplasm of breast (principal)
CPT/HCPCS: 77063; 77067

== ENCOUNTER 2019-07-27 08:34 | Emergency (ER) | payer OTHER ==
[2019-07-27] MEDS ORDERED: SODIUM CHLORIDE 0.9% 1,000 ML IV ONE (08:53)
--- NOTE | 2019-07-27 08:55 | ED ---
Abdominal Pain HPI - General Chief Complaint: Abdominal Pain Stated Complaint: Check for COVID Time Seen by Provider: 07/27/19 08:43 Source: patient, RN notes reviewed Mode of arrival: ambulatory Limitations: no limitations - History of Present Illness Initial Comments: This a 53-year-old female presents emergency Department with chief complaint of left lower quadrant abdominal pain. Patient states she has some discomfort yesterday states that she started having diarrhea today which is not melanotic or having bright red blood. Patient denies any known fevers but states that she fell she had chills. She's had no URI symptoms no cough no chest pain or shortness of breath. Patient denies any recent travel and no sick contacts. Patient's had a colonoscopy in the past which she states she had some protein or polyps. Patient's had a prior hysterectomy and cholecystectomy. Patient denies any dysuria hematuria - Related Data Home Medications Medication Instructions Recorded Confirmed Garlic 1 each PO DAILY 02/14/19 02/15/19 Multivitamins, Thera [Multivitamin 1 tab PO DAILY 02/14/19 02/14/19 (formulary)] Nitrofurantoin Macrocrystal 100 mg PO BID 02/14/19 02/14/19 [Nitrofurantoin] Allergies Allergy/AdvReac Type Severity Reaction Status Date / Time dextromethorphan HBr Allergy Unknown Verified 07/27/19 08:40 [From Comtrex Cold-Cough] Childhood phenylephrine HCl Allergy Unknown Verified 07/27/19 08:40 [From Comtrex Cold-Cough] Childhood lisinopril AdvReac Unknown Verified 07/27/19 08:40 Review of Systems ROS Statement: Those systems with pertinent positive or pertinent negative responses have been documented in the HPI. ROS Other: All systems not noted in ROS Statement are negative. 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 Absent: scleral icterus, conjunctival injection, periorbital swelling ENT exam: Present: normal exam, normal oropharynx, mucous membranes moist Neck exam: Present: normal inspection, full ROM. Absent: tenderness, meningismus, lymphadenopathy Respiratory exam: Present: normal lung sounds bilaterally. Absent: respiratory distress, wheezes, rales, rhonchi, stridor Cardiovascular Exam: Present: regular rate, normal rhythm, normal heart sounds. Absent: systolic murmur, diastolic murmur, rubs, gallop, clicks GI/Abdominal exam: Present: soft, tenderness (Moderate lower, left lower quadrant tenderness), normal bowel sounds. Absent: distended, guarding, rebound, rigid Back exam: Absent: CVA tenderness (R), CVA tenderness (L) Neurological exam: Present: alert, oriented X3 Skin exam: Present: warm, dry, intact, normal color. Absent: rash Course Vital Signs 07/27/19 08:37 Temperature 98.5 F Pulse Rate 88 Respiratory 16 Rate Blood Pressure 135/95 O2 Sat by Pulse 98 Oximetry Medical Decision Making - Medical Decision Making 53-year-old female bent for diarrhea abdominal discomfort. CT is obtained concerning for diverticulitis which is negative. There are no acute findings. Symptoms most likely related to GI illness, enteritis. Patient discharged in stable condition return parameters were discussed. - Lab Data Result diagrams: 07/27/19 09:05 07/27/19 09:05 Lab Results 07/27/19 07/27/19 07/27/19 Range/Units 09:05 09:05 09:05 WBC 5.3 (3.8-10.6) k/uL RBC 4.88 (3.80-5.40) m/uL Hgb 14.4 (11.4-16.0) gm/dL Hct 43.9 (34.0-46.0) % MCV 90.0 (80.0-100.0) fL MCH 29.5 (25.0-35.0) pg MCHC 32.8 (31.0-37.0) g/dL RDW 13.6 (11.5-15.5) % Plt Count 260 (150-450) k/uL Neutrophils % 71 % Lymphocytes % 21 % Monocytes % 5 % Eosinophils % 1 % Basophils % 1 % Neutrophils # 3.7 (1.3-7.7) k/uL Lymphocytes # 1.1 (1.0-4.8) k/uL Monocytes # 0.3 (0-1.0) k/uL Eosinophils # 0.0 (0-0.7) k/uL Basophils # 0.0 (0-0.2) k/uL Sodium 140 (137-145) mmol/L Potassium 4.3 (3.5-5.1) mmol/L Chloride 106 (98-107) mmol/L Carbon Dioxide 23 (22-30) mmol/L Anion Gap 11 mmol/L BUN 13 (7-17) mg/dL Creatinine 0.63 (0.52-1.04) mg/dL Est GFR (CKD-EPI)AfAm >90 (>60 ml/min/1.73 sqM) Est GFR (CKD-EPI)NonAf >90 (>60 ml/min/1.73 sqM) Glucose 101 H (74-99) mg/dL Plasma Lactic Acid José Antonio (0.7-2.0) mmol/L Calcium 8.9 (8.4-10.2) mg/dL Total Bilirubin 0.3 (0.2-1.3) mg/dL AST 28 (14-36) U/L ALT 15 (4-34) U/L Alkaline Phosphatase 92 (38-126) U/L Total Protein 7.3 (6.3-8.2) g/dL Albumin 4.5 (3.5-5.0) g/dL Amylase 100 (30-110) U/L Lipase 243 (23-300) U/L Urine Color Colorless Urine Appearance Clear (Clear) Urine pH 7.0 (5.0-8.0) Ur Specific [place] 1.002 (1.001-1.035) Urine Protein Negative (Negative) Urine Glucose (UA) Negative (Negative) Urine Ketones Negative (Negative) Urine Blood Negative (Negative) Urine Nitrite Negative (Negative) Urine Bilirubin Negative (Negative) Urine Urobilinogen <2.0 (<2.0) mg/dL Ur Leukocyte Esterase Negative (Negative) 07/27/19 Range/Units 09:05 WBC (3.8-10.6) k/uL RBC (3.80-5.40) m/uL Hgb (11.4-16.0) gm/dL Hct (34.0-46.0) % MCV (80.0-100.0) fL MCH (25.0-35.0) pg MCHC (31.0-37.0) g/dL RDW (11.5-15.5) % Plt Count (150-450) k/uL Neutrophils % % Lymphocytes % % Monocytes % % Eosinophils % % Basophils % % Neutrophils # (1.3-7.7) k/uL Lymphocytes # (1.0-4.8) k/uL Monocytes # (0-1.0) k/uL Eosinophils # (0-0.7) k/uL Basophils # (0-0.2) k/uL Sodium (137-145) mmol/L Potassium (3.5-5.1) mmol/L Chloride (98-107) mmol/L Carbon Dioxide (22-30) mmol/L Anion Gap mmol/L BUN (7-17) mg/dL Creatinine (0.52-1.04) mg/dL Est GFR (CKD-EPI)AfAm (>60 ml/min/1.73 sqM) Est GFR (CKD-EPI)NonAf (>60 ml/min/1.73 sqM) Glucose (74-99) mg/dL Plasma Lactic Acid José Antonio 1.6 (0.7-2.0) mmol/L Calcium (8.4-10.2) mg/dL Total Bilirubin (0.2-1.3) mg/dL AST (14-36) U/L ALT (4-34) U/L Alkaline Phosphatase (38-126) U/L Total Protein (6.3-8.2) g/dL Albumin (3.5-5.0) g/dL Amylase (30-110) U/L Lipase (23-300) U/L Urine Color Urine Appearance (Clear) Urine pH (5.0-8.0) Ur Specific [place] (1.001-1.035) Urine Protein (Negative) Urine Glucose (UA) (Negative) Urine Ketones (Negative) Urine Blood (Negative) Urine Nitrite (Negative) Urine Bilirubin (Negative) Urine Urobilinogen (<2.0) mg/dL Ur Leukocyte Esterase (Negative) Disposition Clinical Impression: Enteritis, Abdominal pain Disposition: HOME SELF-CARE Condition: Stable Instructions (If sedation given, give patient instructions): Abdominal Pain (ED) Additional Instructions: Please return to the Emergency Department if symptoms worsen or any other concerns. Is patient prescribed a controlled substance at d/c from ED?: No Referrals: Javan Lawrence MD [Primary Care Provider] - 1-2 days Time of Disposition: 09:49
[2019-07-27 09:20] LABS: Basophils % (A) 1 %; Eosinophils % (A) 1 %; HCT 43.9 % (34.0-46.0); HGB 14.4 gm/dL (11.4-16.0); Lymphocytes # (A) 1.1 k/uL (1.0-4.8); Lymphocytes % (A) 21 %; MCH 29.5 pg (25.0-35.0); MCHC 32.8 g/dL (31.0-37.0); Mean Platelet Volume 8.1; Monocytes # (A) 0.3 k/uL (0-1.0); Monocytes % (A) 5 %; Neutrophils # (A) 3.7 k/uL (1.3-7.7); Neutrophils % (A) 71 %; Platelet Count 260 k/uL (150-450); RBC 4.88 m/uL (3.80-5.40); RDW 13.6 % (11.5-15.5); WBC 5.3 k/uL (3.8-10.6)
[2019-07-27 09:22] LABS: Appearance,Urine Clear (Clear); Bilirubin,Urine Negative (Negative); Blood,Urine Negative (Negative); Color,Urine Colorless; Glucose,Urine (UA) Negative (Negative); Ketones,Urine Negative (Negative); Leukocyte Esterase,Urine Negative (Negative); Nitrite,Urine Negative (Negative); Protein,Urine Negative (Negative); Specific Gravity,Urine 1.002 (1.001-1.035); Urobilinogen,Urine <2.0 mg/dL (<2.0)
[2019-07-27 09:34] LABS: ALT 15 U/L (4-34); AST 28 U/L (14-36); African American GFR (CKD) >90 (>60 ml/min/1.73 sqM); Albumin 4.5 g/dL (3.5-5.0); Alkaline Phosphatase 92 U/L (38-126); Amylase 100 U/L (30-110); Anion Gap 11 mmol/L; Blood Urea Nitrogen 13 mg/dL (7-17); Calcium 8.9 mg/dL (8.4-10.2); Carbon Dioxide 23 mmol/L (22-30); Chloride 106 mmol/L (98-107); Glucose 101 mg/dL (74-99); Non-African American GFR(CKD) >90 (>60 ml/min/1.73 sqM); Potassium 4.3 mmol/L (3.5-5.1); Sodium 140 mmol/L (137-145); Total Bilirubin 0.3 mg/dL (0.2-1.3); Total Protein 7.3 g/dL (6.3-8.2)
--- NOTE | 2019-07-27 09:41 | CT ---
EXAMINATION TYPE: CT abdomen pelvis w con DATE OF EXAM: 07/27/2019 COMPARISON: Correlation CT chest 04/09/2016 HISTORY: 53-year-old female LLQ pain, diarrhea TECHNIQUE: Contiguous axial scanning of the abdomen and pelvis following administration of 100 ml Iso ruby 300 IV contrast. Delayed images through the kidneys and coronal/sagittal reconstructions perform ed. CT DLP: 1010.1 mGycm Automated exposure control for dose reduction was used. FINDINGS: Heart normal size without pericardial effusion. Mild hazy dependent atelectasis lung bases. No pleura l effusion. Redemonstrated pneumobilia. No focal liver lesion. Cholecystectomy clips. No progressive biliary duct al dilatation as compared to the CT chest of 04/09/2016. A couple diverticula of the duodenum projecting to the pancreatic head region measuring 4.1 and 3.4 c m. Pancreas otherwise unremarkable. Adrenal glands, kidneys, and spleen appear within normal limits. No dilated small bowel, free fluid, or free air. Normal appendix. No significant stool burden. No pericolonic inflammatory change. No mesenteric or retroperitoneal lymphadenopathy. Mild circumferential bladder wall thickening. Uterus surgically absent. Neither ovary clearly delinea judith from adjacent bowel loops. Multiple pelvic phleboliths. No abnormal fluid collection in the pelvi s or pelvic lymphadenopathy. Bones: Posterior disc protrusion at L4-L5. IMPRESSION: 1. Mild circumferential bladder wall thickening could be chronic change. Correlate to exclude cystiti s. 2. Pneumobilia which was also present back in 2016. Likely relating to prior sphincterotomy. Clinical ly correlate. 3. Otherwise, no acute inflammatory process identified in the abdomen or pelvis to explain the patien t's symptoms.
[2019-07-27 10:12] VITALS: BP 122/92; PULSE 67; RESP 18; TEMP 98.2
== END 2019-07-27 10:12 | disposition home or self-care (01) ==
LOC: EC 08:34
DX: K52.9 Noninfective gastroenteritis and colitis, unspecified (principal); Z88.8 Allergy status to other drugs, medicaments and biological substances; Z90.49 Acquired absence of other specified parts of digestive tract; Z90.710 Acquired absence of both cervix and uterus
CPT/HCPCS: 99284; 96360; 36415; 80053; 82150; 83605; 83690; 85025; 81003; 74177; Q9967

== ENCOUNTER 2019-12-30 08:05 | Emergency (ER) | payer OTHER ==
[2019-12-30 08:11] VITALS: TEMP 98.2
[2019-12-30] MEDS ORDERED: DIPHENOX-ATROP 2.5-0.025 MG 1 EACH TAB PO STA (08:21)
[2019-12-30] MEDS ORDERED: SODIUM CHLORIDE 0.9% 1,000 ML IV STA (08:21)
[2019-12-30 08:52] LABS: Basophils % (A) 1 %; Eosinophils # (A) 0.1 k/uL (0-0.7); Eosinophils % (A) 1 %; HCT 45.2 % (34.0-46.0); HGB 14.5 gm/dL (11.4-16.0); Lymphocytes # (A) 1.2 k/uL (1.0-4.8); Lymphocytes % (A) 19 %; MCH 29.1 pg (25.0-35.0); MCHC 32.1 g/dL (31.0-37.0); MCV 90.6 fL (80.0-100.0); Mean Platelet Volume 8.9; Monocytes # (A) 0.3 k/uL (0-1.0); Monocytes % (A) 5 %; Neutrophils # (A) 4.5 k/uL (1.3-7.7); Neutrophils % (A) 73 %; Platelet Count 246 k/uL (150-450); RBC 4.98 m/uL (3.80-5.40); RDW 13.6 % (11.5-15.5); WBC 6.1 k/uL (3.8-10.6)
[2019-12-30 08:53] LABS: Appearance,Urine Clear (Clear); Bilirubin,Urine Negative (Negative); Blood,Urine Negative (Negative); Color,Urine Light Yellow; Glucose,Urine (UA) Negative (Negative); Ketones,Urine Negative (Negative); Leukocyte Esterase,Urine Small (Negative); Mucus,Urine Rare /hpf; Nitrite,Urine Negative (Negative); Protein,Urine Negative (Negative); RBC,Urine 1 /hpf (0-5); Specific Gravity,Urine 1.006 (1.001-1.035); Squamous Epithelial Cell,Urine <1 /hpf (0-4); Urobilinogen,Urine <2.0 mg/dL (<2.0); WBC,Urine <1 /hpf (0-5)
[2019-12-30 09:00] LABS: ALT 20 U/L (4-34); African American GFR (CKD) >90 (>60 ml/min/1.73 sqM); Albumin 4.7 g/dL (3.5-5.0); Amylase 118 U/L (30-110); Anion Gap 7 mmol/L; Blood Urea Nitrogen 18 mg/dL (7-17); Calcium 9.3 mg/dL (8.4-10.2); Carbon Dioxide 25 mmol/L (22-30); Chloride 107 mmol/L (98-107); Glucose 79 mg/dL (74-99); Lipase 232 U/L (23-300); Non-African American GFR(CKD) >90 (>60 ml/min/1.73 sqM); Sodium 139 mmol/L (137-145); Total Bilirubin 0.7 mg/dL (0.2-1.3); Total Protein 7.4 g/dL (6.3-8.2)
[2019-12-30 09:07] LABS: Potassium 5.1 mmol/L (3.5-5.1)
[2019-12-30 09:08] LABS: AST 39 U/L (14-36); Alkaline Phosphatase 89 U/L (38-126)
[2019-12-30 09:19] VITALS: BP 124/90; PULSE 60; RESP 16
[2019-12-30] MEDS ORDERED: DIPHENOX-ATROP STARTER PACK 8 TAB BTL PO STA (09:38)
--- NOTE | 2019-12-30 09:38 | ED ---
General Adult HPI - General Chief complaint: Nausea/Vomiting/Diarrhea Stated complaint: fever/diarrhea Time Seen by Provider: 12/30/19 09:05 Source: patient, RN notes reviewed, old records reviewed Mode of arrival: ambulatory Limitations: no limitations - History of Present Illness Initial comments: This is a 54-year-old female who presents emergency Department complaining that she hasn't felt well since Thursday. Patient states she has had diarrhea and also complains of a sore throat and some ear pain. Patient states her primary medical care doctor started her on antibiotics for sore throat or pain in those it seemed to get progressively better. Patient states she felt warm but she never took her temperature. Patient denies any chills. Patient denies any chest pain difficulty breathing shortness of breath per patient any cough. Patient denies any abdominal pain. Patient states she has had no nausea or vomiting but has diarrhea daily. Patient denies any blood in stool. Patient denies any areas of reddened skin or lesions. - Related Data Home Medications Medication Instructions Recorded Confirmed Multivitamins, Thera [Multivitamin 1 tab PO DAILY 02/14/19 12/30/19 (formulary)] Albuterol Sulfate [Albuterol 1 - 2 puff PO RT-Q6H PRN 12/30/19 12/30/19 Sulfate Hfa] Azithromycin [Zithromax Tri-Angelo] 500 mg PO DAILY 12/30/19 12/30/19 Cholecalciferol [Vitamin D3 (25 1,000 unit PO DAILY 12/30/19 12/30/19 Mcg = 1000 Iu)] Allergies Allergy/AdvReac Type Severity Reaction Status Date / Time dextromethorphan HBr Allergy Unknown Verified 12/30/19 08:11 [From Comtrex Cold-Cough] Childhood phenylephrine HCl Allergy Unknown Verified 12/30/19 08:11 [From Comtrex Cold-Cough] Childhood lisinopril AdvReac Unknown Verified 12/30/19 08:11 Review of Systems ROS Statement: Those systems with pertinent positive or pertinent negative responses have been documented in the HPI. ROS Other: All systems not noted in ROS Statement are negative. 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 Patient is nontoxic and well- hydrated and is in mild distress. ENT: Neck is soft and supple. No significant lymphadenopathy is noted. Oropharynx is clear. Moist mucous membranes. Neck has full range of motion without eliciting any pain. EYES: The sclera were anicteric and conjunctiva were pink and moist. Extraocular movements were intact and pupils were equal round and reactive to light. Eyelids were unremarkable. PULMONARY: Unlabored respirations. Good breath sounds bilaterally. No audible rales rhonchi or wheezing was noted. CARDIOVASCULAR: There is a regular rate and rhythm without any murmurs gallops or rubs. ABDOMEN: Soft and nontender with normal bowel sounds. SKIN: Skin is clear with no lesions or rashes and otherwise unremarkable. NEUROLOGIC: Patient is alert and oriented x3. Cranial nerves II through XII are grossly int act. Motor and sensory are also intact. Normal speech, volume and content. Symmetrical smile. MUSCULOSKELETAL: Normal extremities with adequate strength and full range of motion. LYMPHATICS: No significant lymphadenopathy is noted PSYCHIATRIC: Normal psychiatric evaluation. Limitations: no limitations Course Vital Signs 12/30/19 12/30/19 08:07 09:18 Temperature 98.2 F Pulse Rate 83 60 Respiratory 18 16 Rate Blood Pressure 134/94 124/90 O2 Sat by Pulse 98 97 Oximetry Medical Decision Making - Medical Decision Making patient received some Lomotil and the emergency department as well as some IV fluids. One pack and reevaluate the patient she stated she felt considerably better and felt could not go home at this time. Patient to get a COVID test and I told to stay away from people until she gets results - Lab Data Result diagrams: 12/30/19 08:36 12/30/19 08:36 Lab Results 12/30/19 12/30/19 12/30/19 Range/Units 08:36 08:36 08:36 WBC 6.1 (3.8-10.6) k/uL RBC 4.98 (3.80-5.40) m/uL Hgb 14.5 (11.4-16.0) gm/dL Hct 45.2 (34.0-46.0) % MCV 90.6 (80.0-100.0) fL MCH 29.1 (25.0-35.0) pg MCHC 32.1 (31.0-37.0) g/dL RDW 13.6 (11.5-15.5) % Plt Count 246 (150-450) k/uL Neutrophils % 73 % Lymphocytes % 19 % Monocytes % 5 % Eosinophils % 1 % Basophils % 1 % Neutrophils # 4.5 (1.3-7.7) k/uL Lymphocytes # 1.2 (1.0-4.8) k/uL Monocytes # 0.3 (0-1.0) k/uL Eosinophils # 0.1 (0-0.7) k/uL Basophils # 0.0 (0-0.2) k/uL Sodium 139 (137-145) mmol/L Potassium 5.1 (3.5-5.1) mmol/L Chloride 107 (98-107) mmol/L Carbon Dioxide 25 (22-30) mmol/L Anion Gap 7 mmol/L BUN 18 H (7-17) mg/dL Creatinine 0.69 (0.52-1.04) mg/dL Est GFR (CKD-EPI)AfAm >90 (>60 ml/min/1.73 sqM) Est GFR (CKD-EPI)NonAf >90 (>60 ml/min/1.73 sqM) Glucose 79 (74-99) mg/dL Calcium 9.3 (8.4-10.2) mg/dL Total Bilirubin 0.7 (0.2-1.3) mg/dL AST 39 H (14-36) U/L ALT 20 (4-34) U/L Alkaline Phosphatase 89 (38-126) U/L Total Protein 7.4 (6.3-8.2) g/dL Albumin 4.7 (3.5-5.0) g/dL Amylase 118 H (30-110) U/L Lipase 232 (23-300) U/L Urine Color Light Yellow Urine Appearance Clear (Clear) Urine pH 6.0 (5.0-8.0) Ur Specific [place] 1.006 (1.001-1.035) Urine Protein Negative (Negative) Urine Glucose (UA) Negative (Negative) Urine Ketones Negative (Negative) Urine Blood Negative (Negative) Urine Nitrite Negative (Negative) Urine Bilirubin Negative (Negative) Urine Urobilinogen <2.0 (<2.0) mg/dL Ur Leukocyte Esterase Small H (Negative) Urine RBC 1 (0-5) /hpf Urine WBC <1 (0-5) /hpf Ur Squamous Epith Cells <1 (0-4) /hpf Urine Mucus Rare H (None) /hpf Disposition Clinical Impression: Acute diarrhea Disposition: HOME SELF-CARE Condition: Good Instructions (If sedation given, give patient instructions): Acute Diarrhea (ED) Is patient prescribed a controlled substance at d/c from ED?: No Referrals: Javan Lawrence MD [Primary Care Provider] - 1-2 days Time of Disposition: 09:38
== END 2019-12-30 09:54 | disposition home or self-care (01) ==
LOC: EC 08:05
DX: R19.7 Diarrhea, unspecified (principal); J45.909 Unspecified asthma, uncomplicated; Z88.8 Allergy status to other drugs, medicaments and biological substances; Z90.49 Acquired absence of other specified parts of digestive tract; Z90.710 Acquired absence of both cervix and uterus
CPT/HCPCS: 36415; 80053; 81001; 82150; 83690; 85025; 96360; 99284

== ENCOUNTER 2020-02-08 16:01 | Emergency (ER) | payer OTHER ==
[2020-02-08 16:14] VITALS: BP 152/97; PULSE 82; RESP 17; TEMP 97.8
--- NOTE | 2020-02-08 16:57 | ED ---
General Adult HPI - General Chief complaint: Recheck/Abnormal Lab/Rx Stated complaint: COVID TEST FOR WORK Time Seen by Provider: 02/08/20 16:25 Source: patient, RN notes reviewed, old records reviewed Mode of arrival: ambulatory Limitations: no limitations - History of Present Illness Initial comments: PT is a 54 year old female whom needs a COVID test to return to work. She was out with pneumonia and treated with antibiotics from PCP. She reports she is improved of her symptoms. Pt states she has no fever, chills, and improved congestiona nd cough. Pt denies other complaints. - Related Data Home Medications Medication Instructions Recorded Confirmed Multivitamins, Thera [Multivitamin 1 tab PO DAILY 02/14/19 12/30/19 (formulary)] Albuterol Sulfate [Albuterol 1 - 2 puff PO RT-Q6H PRN 12/30/19 12/30/19 Sulfate Hfa] Azithromycin [Zithromax Tri-Angelo] 500 mg PO DAILY 12/30/19 12/30/19 Cholecalciferol [Vitamin D3 (25 1,000 unit PO DAILY 12/30/19 12/30/19 Mcg = 1000 Iu)] Allergies Allergy/AdvReac Type Severity Reaction Status Date / Time dextromethorphan HBr Allergy Unknown Verified 12/30/19 08:11 [From Comtrex Cold-Cough] Childhood phenylephrine HCl Allergy Unknown Verified 12/30/19 08:11 [From Comtrex Cold-Cough] Childhood lisinopril AdvReac Unknown Verified 12/30/19 08:11 Review of Systems ROS Statement: Those systems with pertinent positive or pertinent negative responses have been documented in the HPI. ROS Other: All systems not noted in ROS Statement are negative. 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 Limitations: no limitations General appearance: alert, in no apparent distress Head exam: Present: atraumatic, normocephalic, normal inspection Eye exam: Present: normal appearance, PERRL, EOMI. Absent: scleral icterus, conjunctival injection, periorbital swelling ENT exam: Present: normal exam, mucous membranes moist Neck exam: Present: normal inspection. Absent: tenderness, meningismus, lymphadenopathy Respiratory exam: Present: normal lung sounds bilaterally. Absent: respiratory distress, wheezes, rales, rhonchi, stridor Cardiovascular Exam: Present: regular rate, normal rhythm, normal heart sounds. Absent: systolic murmur, diastolic murmur, rubs, gallop, clicks Extremities exam: Present: normal inspection, full ROM, normal capillary refill. Absent: tenderness, pedal edema, joint swelling, calf tenderness Back exam: Present: normal inspection Neurological exam: Present: alert, oriented X3, CN II-XII intact Psychiatric exam: Present: normal affect, normal mood Skin exam: Present: warm, dry, intact, normal color. Absent: rash Course Vital Signs 02/08/20 16:11 Temperature 97.8 F Pulse Rate 82 Respiratory 17 Rate Blood Pressure 152/97 O2 Sat by Pulse 100 Oximetry Medical Decision Making - Medical Decision Making 54 year old well appearing female presents for COvid test to return to work if it is negative. Pt has no symptoms at this time and is improved from pneumonia diagnosis. Pt will be tested for Covid, and advised to call medical records for results to return to work in 2 days if negative. Disposition Clinical Impression: COVID-19 virus test result unknown Disposition: HOME SELF-CARE Condition: Good Additional Instructions: results will be available in the next 2-3 days. Return to the emergency department if any alarming signs or symptoms occur. Follow-up with medical records for results of COVID test. Is patient prescribed a controlled substance at d/c from ED?: No Referrals: Javan Lawrence MD [Primary Care Provider] - 1-2 days Time of Disposition: 16:57
== END 2020-02-08 17:12 | disposition home or self-care (01) ==
LOC: EC 16:01
DX: Z02.1 Encounter for pre-employment examination (principal); J45.909 Unspecified asthma, uncomplicated; Z88.8 Allergy status to other drugs, medicaments and biological substances; Z90.49 Acquired absence of other specified parts of digestive tract; Z90.710 Acquired absence of both cervix and uterus; Z90.89 Acquired absence of other organs; Z87.01 Personal history of pneumonia (recurrent); Z20.828 Contact with and (suspected) exposure to other viral communicable diseases
CPT/HCPCS: 99283; U0003

== ENCOUNTER → 2020-03-29 | Outpatient (CLI) | payer OTHER | END | disposition home or self-care (01) | LOC: LABWHC1 16:12 | PROVIDERS: ATTEND Family Medicine | DX: Z03.818 Encounter for observation for suspected exposure to other biological agents ruled out (principal); Z20.828 Contact with and (suspected) exposure to other viral communicable diseases | CPT/HCPCS: U0003; C9803 ==

== ENCOUNTER 2020-07-12 15:23 | Emergency (ER) | payer OTHER ==
[2020-07-12 16:14] VITALS: BP 147/92; PULSE 94; RESP 18; TEMP 98.2
--- NOTE | 2020-07-12 17:20 | ED ---
URI HPI - General Chief Complaint: Upper Respiratory Infection Stated Complaint: Wants covid test Time Seen by Provider: 07/12/20 16:35 Source: family Mode of arrival: ambulatory Limitations: no limitations - History of Present Illness Initial Comments: Patient is a 54-year-old female with history of mild asthma, presenting to the emergency department requesting a Covid test. Patient states she was sent from her doctor's office, Dr. Lawrence. Patient states over this past weekend she was having symptoms of fever, cough, body aches and chills. Patient states she did contact her doctor who recommended a Covid test. She states at this time her symptoms seem to be decreasing. Chest pain or shortness of breath, no nausea or vomiting, no abdominal pain. She has been eating and drinking as normal. She has no further complaints. Upon arrival to the ER, she is afebrile, vitals are normal. - Related Data Home Medications Medication Instructions Recorded Confirmed Ibuprofen [Motrin Ib] 200 mg PO Q8H PRN 07/12/20 07/12/20 amLODIPine [Norvasc] 2.5 mg PO DAILY 07/12/20 07/12/20 Previous Rx's Medication Instructions Recorded Dexamethasone [Decadron] 6 mg PO DAILY 5 Days #5 tablet 07/12/20 Allergies Allergy/AdvReac Type Severity Reaction Status Date / Time dextromethorphan HBr Allergy Unknown Verified 07/12/20 17:49 [From Comtrex Cold-Cough] Childhood phenylephrine HCl Allergy Unknown Verified 07/12/20 17:49 [From Comtrex Cold-Cough] Childhood lisinopril AdvReac dizzy Verified 07/12/20 17:49 Review of Systems ROS Statement: Those systems with pertinent positive or pertinent negative responses have been documented in the HPI. ROS Other: All systems not noted in ROS Statement are negative. 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 Patient is nontoxic and in no acute distress. HEAD: Atraumatic, normocephalic. EYES: Pupils equal round and reactive to light, extraocular movements intact, sclera anicteric, conjunctiva are normal. Eyelids were unremarkable. ENT: TMs normal, nares patent, oropharynx clear without exudates. Moist mucous membranes. NECK: Normal range of motion, supple without lymphadenopathy or JVD. LUNGS: Unlabored respirations. Breath sounds clear to auscultation bilaterally and equal. No wheezes rales or rhonchi. HEART: Regular rate and rhythm without murmurs, rubs or gallops. ABDOMEN: Soft, nontender, normoactive bowel sounds. No guarding, no rebound. No masses appreciated. : Deferred MUSCULOSKELETAL: Normal extremities with adequate strength and normal range of motion, no pitting or edema. No clubbing or cyanosis. NEUROLOGICAL: Patient is alert and oriented x 3. Motor and sensory are also intact. Cranial nerves II through XII grossly intact. Symmetrical smile. Normal speech, normal gait. PSYCH: Normal mood, normal affect. SKIN: Warm, Dry, normal turgor, no rashes or lesions noted. Limitations: no limitations Course Vital Signs 07/12/20 16:10 Temperature 98.2 F Pulse Rate 94 Respiratory 18 Rate Blood Pressure 147/92 O2 Sat by Pulse 95 Oximetry Medical Decision Making - Medical Decision Making She is a 54-year-old female, history of mild asthma, presenting for a Covid test. Dr. Lawrence sent her for testing. She had symptoms of Covid over the weekend, started Thursday. She still been eating and drinking as normal. I did recommend a chest x-ray however she declined. Rapid Covid testing is positive. I discussed these findings with the patient. I did give her work note. Will also start her on Decadron secondary to her history of mild asthma. She will follow-up with her PCP. Patient is stable for discharge. Patient is in agreement with this plan of care. Return parameters were discussed with the patient and they verbalized understanding. Case discussed with Dr. Cuevas. - Lab Data Lab Results 07/12/20 Range/Units 17:01 Coronavirus (PCR) Detected A (Not Detectd) Disposition Clinical Impression: COVID-19 Disposition: HOME SELF-CARE Condition: Stable Instructions (If sedation given, give patient instructions): Coronavirus Disease 2019 (COVID-19) Additional Instructions: Please return to the Emergency Department if symptoms worsen or any other concerns. Rapid covid test today is positive. Recommend taking the steroid daily as prescribed. Use an inhaler for shortness of breath as needed. Quarantine for 10 days from your symptom onset. Follow-up with your PCP. Prescriptions: Dexamethasone [Decadron] 6 mg PO DAILY 5 Days #5 tablet Is patient prescribed a controlled substance at d/c from ED?: No Referrals: Javan Lawrence MD [Primary Care Provider] - 1-2 days
== END 2020-07-12 18:19 | disposition home or self-care (01) ==
LOC: EC 15:23
DX: U07.1 COVID-19 (principal); J45.909 Unspecified asthma, uncomplicated; Z90.49 Acquired absence of other specified parts of digestive tract; Z90.710 Acquired absence of both cervix and uterus; Z90.09 Acquired absence of other part of head and neck; Z79.52 Long term (current) use of systemic steroids
CPT/HCPCS: 87635; 99283

== ENCOUNTER → 2020-08-10 | Outpatient (CLI) | payer OTHER ==
--- NOTE | 2020-08-14 07:38 | MM ---
Reason for exam: screening (asymptomatic). Last mammogram was performed 1 year and 4 months ago. History: Patient is postmenopausal. Family history of breast cancer in paternal grandmother. Took hormonal contraceptives for 6 years beginning at age 17. Physical Findings: A clinical breast exam by your physician is recommended on an annual basis and results should be correlated with mammographic findings. MG 3D Screening Mammo W/Cad Bilateral CC and MLO view(s) were taken. Prior study comparison: April 19, 2019, bilateral MG 3d screening mammo w/cad. January 04, 2018, bilateral MG screening mammo w CAD. There are scattered fibroglandular densities. No significant changes when compared with prior studies. ASSESSMENT: Negative, BI-RAD 1 RECOMMENDATION: Routine screening mammogram of both breasts in 1 year.
== END | disposition home or self-care (01) ==
LOC: RADMAMWWP 12:32
PROVIDERS: ATTEND Family Medicine
DX: Z12.31 Encounter for screening mammogram for malignant neoplasm of breast (principal); Z80.3 Family history of malignant neoplasm of breast
CPT/HCPCS: 77063; 77067

== ENCOUNTER → 2020-10-04 | Outpatient (CLI) | payer OTHER ==
--- NOTE | 2020-10-05 06:33 | MR ---
EXAMINATION TYPE: MR angio head wo/neck wo/w con DATE OF EXAM: 10/04/2020 COMPARISON: CT neck with contrast April 22, 2016 HISTORY: Visual changes, loss of circulation, TIA, Headaches. Pt c/o visual changes when turning head to the right. TECHNIQUE: Time of flight images focusing on the [place] were performed without contrast.. 2-D and 3-D postprocessing imaging is performed on independent workstation. MRA neck without and with contrast. Patient injected with 6 cc of gadolinium. 2-D and 3-D postproces sing imaging is performed on independent workstation. FINDINGS: There is codominant vertebrobasilar system patent to the basilar junction. There is patent right posterior communicating artery. There is hypoplastic left posterior communicating artery. There is no significant focal stenosis or aneurysmal change in the posterior circulation. There is a patent anterior communicating artery images 98 through 102. There is no significant focal stenosis or aneurysmal change. Normal 3 vessel origins from aortic arch redemonstrated. No significant stenosis. Normal origin right common carotid artery from right brachiocephalic artery. No significant stenosis in common or international [employer] al carotid arteries bilaterally with particular attention to carotid bulb level. Patent bilateral ext ernal carotid arteries without significant stenosis. IMPRESSION: Unremarkable study. No significant stenosis in the common or internal carotid arteries. N o significant stenosis or aneurysm at the level of the [place].
== END | disposition home or self-care (01) ==
LOC: RADMRIMAIN 15:11
PROVIDERS: ATTEND Family Medicine
DX: R51.9 Headache, unspecified (principal); H54.7 Unspecified visual loss
CPT/HCPCS: 70544; 70549; A9585

== ENCOUNTER 2021-09-24 11:02 | Emergency (ER) | payer OTHER ==
[2021-09-24 11:36] VITALS: TEMP 98.3
--- NOTE | 2021-09-24 12:56 | ED ---
General Adult HPI - General Chief complaint: Upper Respiratory Infection Stated complaint: Vomiting/fever for 3 months Time Seen by Provider: 09/24/21 12:45 Source: patient, RN notes reviewed, old records reviewed Mode of arrival: ambulatory Limitations: no limitations - History of Present Illness Initial comments: This is a well-appearing 56-year-old female that presents to the emergency room with complaints of fever on and off for the past 2 months with intermittent cough and vomiting. She states that her temperature has been low-grade 100.5 today. She didn't take any medication prior to arrival. She does not take any medicine daily other than a multivitamin. She does have history of asthma and cholecystectomy. -: month(s) (2) Associated Symptoms: cough, fever/chills, nausea/vomiting Treatments Prior to Arrival: none - Related Data Home Medications Medication Instructions Recorded Confirmed Ibuprofen [Motrin Ib] 200 mg PO Q8H PRN 07/12/20 07/12/20 amLODIPine [Norvasc] 2.5 mg PO DAILY 07/12/20 07/12/20 Previous Rx's Medication Instructions Recorded Dexamethasone [Decadron] 6 mg PO DAILY 5 Days #5 tablet 07/12/20 Allergies Allergy/AdvReac Type Severity Reaction Status Date / Time dextromethorphan HBr Allergy Unknown Verified 09/24/21 11:36 [From Comtrex Cold-Cough] Childhood phenylephrine HCl Allergy Unknown Verified 09/24/21 11:36 [From Comtrex Cold-Cough] Childhood lisinopril AdvReac dizzy Verified 09/24/21 11:36 Review of Systems ROS Statement: Those systems with pertinent positive or pertinent negative responses have been documented in the HPI. ROS Other: All systems not noted in ROS Statement are negative. 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 Past Anesthesia/Blood Transfusion Reactions: No Reported Reaction Past Psychological History: No Psychological Hx Reported Smoking Status: Never smoker Past Alcohol Use History: None Reported Past Drug Use History: None Reported - Past Family History Mother Family Medical History: Cancer Additional Family Medical History / Comment(s): LUNG CANCER Brother(s) Family Medical History: Cancer Additional Family Medical History / Comment(s): LUNG CANCER General Exam Limitations: no limitations General appearance: alert, in no apparent distress Head exam: Present: atraumatic Eye exam: Present: normal appearance ENT exam: Present: mucous membranes moist Neck exam: Present: normal inspection, full ROM. Absent: tenderness, meningismus Respiratory exam: Present: normal lung sounds bilaterally. Absent: respiratory distress, accessory muscle use Cardiovascular Exam: Present: tachycardia, normal heart sounds Extremities exam: Present: normal inspection, normal capillary refill. Absent: pedal edema Neurological exam: Present: alert, oriented X3 Psychiatric exam: Present: normal affect, normal mood Skin exam: Present: warm, dry, normal color. Absent: cyanosis, diaphoretic, petechiae, pallor Course Vital Signs 09/24/21 09/24/21 11:34 13:21 Temperature 98.3 F Pulse Rate 109 H 85 Respiratory 20 18 Rate Blood Pressure 118/83 134/90 O2 Sat by Pulse 98 100 Oximetry Medical Decision Making - Medical Decision Making Patient presents with on and off fevers for the past 2 months. She is coronavirus positive today. She was offered a chest x-ray and declined. She is unable to obtain monoclonal antibodies as she does not meet criteria. I did explain to the patient that she should follow up with her primary care doctor, take multivitamins including vitamin C, vitamin D and zinc for immune health and increase her fluid intake. She is agreeable to this plan of care. Case discussed with Dr. Downs - Lab Data Lab Results 09/24/21 09/24/21 Range/Units 11:40 11:40 Coronavirus (PCR) Detected A (Not Detectd) Influenza Type A RNA Not Detected (Not Detectd) Influenza Type B (PCR) Not Detected (Not Detectd) Disposition Clinical Impression: COVID-19 Disposition: HOME SELF-CARE Condition: Good Instructions (If sedation given, give patient instructions): COVID-19 (C oronavirus Disease 2019) (ED) Additional Instructions: Increase your fluid intake and continue taking your multivitamin daily. You can also take vitamin C, vitamin D and zinc to improve your immune health. Follow- up with your primary care doctor this week. Return to the emergency room with any new or concerning symptoms. Is patient prescribed a controlled substance at d/c from ED?: No Referrals: Javan Lawrence MD [Primary Care Provider] - 1-2 days Time of Disposition: 12:56
[2021-09-24 13:22] VITALS: BP 134/90; PULSE 85; RESP 18
== END 2021-09-24 13:22 | disposition home or self-care (01) ==
LOC: EC 11:02
DX: U07.1 COVID-19 (principal); J45.909 Unspecified asthma, uncomplicated; Z88.8 Allergy status to other drugs, medicaments and biological substances; Z88.5 Allergy status to narcotic agent
CPT/HCPCS: 87502; 87635; 99284

== ENCOUNTER 2021-09-30 13:15 | Emergency (ER) | payer OTHER ==
[2021-09-30 13:19] VITALS: BP 137/89; PULSE 87; RESP 20; TEMP 97.4
[2021-09-30] MEDS ORDERED: cefTRIAXone IN SWFI 1,000 MG/10 ML SYRINGE IVP STA (14:58)
--- NOTE | 2021-09-30 17:03 | ED ---
General Adult HPI - General Chief complaint: Recheck/Abnormal Lab/Rx Stated complaint: Wants covid test Time Seen by Provider: 09/30/21 14:39 Source: patient, RN notes reviewed Mode of arrival: ambulatory Limitations: no limitations - History of Present Illness Initial comments: Patient is a 56-year-old female presents to the emergency room at the direction of her employer who advised her that she needed a negative covid test to return to work. She reports that she had a home covid the test that was positive approximately 10 days ago that she took after having some nausea, vomiting, weakness, and low-grade temperatures. She reports her symptoms have resolved with the exception of occasional weakness and she would like to return to work. She denies any current nausea vomiting or diarrhea. She denies any temperatures greater than 100.5. She does previously have covid infection last year and which she reports some generalized fatigue that has lingered since last year. She has a past medical history significant for asthma but denies any respiratory symptoms associated with her covert symptoms. She denies any other complaints or concerns at this time. - Related Data Home Medications Medication Instructions Recorded Confirmed Ibuprofen [Motrin Ib] 200 mg PO Q8H PRN 07/12/20 07/12/20 amLODIPine [Norvasc] 2.5 mg PO DAILY 07/12/20 07/12/20 Previous Rx's Medication Instructions Recorded Dexamethasone [Decadron] 6 mg PO DAILY 5 Days #5 tablet 07/12/20 Allergies Allergy/AdvReac Type Severity Reaction Status Date / Time dextromethorphan HBr Allergy Unknown Verified 09/30/21 13:19 [From Comtrex Cold-Cough] Childhood phenylephrine HCl Allergy Unknown Verified 09/30/21 13:19 [From Comtrex Cold-Cough] Childhood lisinopril AdvReac dizzy Verified 09/30/21 13:19 Review of Systems ROS Statement: Those systems with pertinent positive or pertinent negative responses have been documented in the HPI. ROS Other: All systems not noted in ROS Statement are negative. 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 Past Anesthesia/Blood Transfusion Reactions: No Reported Reaction Past Psychological History: No Psychological Hx Reported Smoking Status: Never smoker Past Alcohol Use History: None Reported Past Drug Use History: None Reported - Past Family History Mother Family Medical History: Cancer Additional Family Medical History / Comment(s): LUNG CANCER Brother(s) Family Medical History: Cancer Additional Family Medical History / Comment(s): LUNG CANCER General Exam Limitations: no limitations General appearance: alert Head exam: Present: atraumatic, normocephalic, normal inspection Eye exam: Present: normal appearance, PERRL, EOMI. Absent: scleral icterus, conjunctival injection, periorbital swelling ENT exam: Present: normal exam, mucous membranes moist Neck exam: Present: normal inspection. Absent: tenderness, meningismus, lymphadenopathy Respiratory exam: Present: normal lung sounds bilaterally. Absent: respiratory distress, wheezes, rales, rhonchi, stridor Cardiovascular Exam: Present: regular rate, normal rhythm, normal heart sounds. Absent: systolic murmur, diastolic murmur, rubs, gallop, clicks GI/Abdominal exam: Present: soft, normal bowel sounds. Absent: distended, tende rness, guarding, rebound, rigid Rectal exam: Present: deferred Extremities exam: Present: normal inspection, full ROM, normal capillary refill. Absent: tenderness, pedal edema, joint swelling, calf tenderness Back exam: Present: normal inspection. Absent: CVA tenderness (R), CVA tenderness (L) Neurological exam: Present: alert, oriented X3, CN II-XII intact Psychiatric exam: Present: normal affect, normal mood Skin exam: Present: warm, dry, intact, normal color. Absent: rash Course Vital Signs 09/30/21 13:17 Temperature 97.4 F L Pulse Rate 87 Respiratory 20 Rate Blood Pressure 137/89 O2 Sat by Pulse 99 Oximetry Medical Decision Making - Medical Decision Making Repeat the test continues to positive. No indication for further testing as symptoms are resolving and onset of symptoms greater than 10 days ago. - Lab Data Lab Results 09/30/21 Range/Units 13:22 Coronavirus (PCR) Detected A (Not Detectd) Disposition Clinical Impression: COVID-19 Disposition: HOME SELF-CARE Condition: Stable Instructions (If sedation given, give patient instructions): COVID-19 (Coronavirus Disease 2019) (ED) Additional Instructions: Please return to the Emergency Department if symptoms worsen or any other concerns. Is patient prescribed a controlled substance at d/c from ED?: No Referrals: Javan Lawrence MD [Primary Care Provider] - 1-2 days Forms: Work/School Release Time of Disposition: 17:06
== END 2021-09-30 17:10 | disposition home or self-care (01) ==
LOC: EC 13:15
DX: U07.1 COVID-19 (principal); J45.909 Unspecified asthma, uncomplicated; Z79.899 Other long term (current) drug therapy
CPT/HCPCS: 87635; 99283

== ENCOUNTER → 2024-02-19 | Outpatient (CLI) | payer OTHER ==
--- NOTE | 2024-02-22 11:30 | MM ---
Reason for Exam: Screening (asymptomatic). Last mammogram was performed 3 year(s) and 6 month(s) ago. Patient History: Menarche at age 10. First Full-Term at age 30. Hysterectomy at age 52. Postmenopausal. Hormonal Contraceptives for 6 years from age 17 until age 23. Paternal grandmother had breast cancer. Risk Values: Franchesca 5 year model risk: 1.5%. NCI Lifetime model risk: 9.7%. Prior Study Comparison: 01/04/2018 Bilateral Screening Mammogram, [facility]. 04/19/2019 Bilateral Screening Mammogram, [facility]. 08/10/2020 Bilateral Screening Mammogram, [facility]. Tissue Density: There are scattered areas of fibroglandular density. Findings: Analyzed By CAD. Right breast: There is no suspicious group of microcalcifications or new suspicious mass. Left breast: There is no suspicious group of microcalcifications or new suspicious mass. Overall Assessment: Negative, BI-RAD 1 Management: Screening Mammogram of both breasts in [address] [facility] will attempt to contact patient to return for supplemental views and ultrasound if indicated. Patient should continue monthly self-breast exams. A clinical breast exam by your physician is recommended on an annual basis. This exam should not preclude additional follow-up of suspicious palpable abnormalities. Note on Franchesca scores and lifetime risk: 1. A Franchesca score greater than 3% is considered moderate risk. If this is the case, consider specialist referral to assess eligibility for a risk reducing agent. 2. If overall lifetime risk for the development of breast cancer is 20% or higher, the patient may qualify for future screening with alternating mammogram and breast MRI. [facility], , 02/22/2024 11:27 AM. Electronically signed and approved by: Jani Caballero DO
== END | disposition home or self-care (01) ==
LOC: RADMAMWWP 14:43
PROVIDERS: ATTEND Family Medicine
CPT/HCPCS: 77067